=== PATIENT | male | born 1935 | race Caucasian/White ===

== ENCOUNTER 2018-01-24 10:33 | Inpatient (IN) | payer MEDICARE, OTHER ==
[~2018-01-24] VITALS: Ht 172.7 cm; Wt 96.2 kg
[~2018-01-24 10:33] MED LIST: ACET-2743 PO; AEC81 PO; ALLO300T2 PO; ALPH50CA PO; CALCIUM/MAG/ZINC PO; CLON0.1T PO; DOXA4TAB3 PO; GABA-531 PO; GARL1CAP7 PO; GLIP5TAB11 PO; HYDR25TA PO; INSU100I13 SQ; LISI40TA4 PO; MAGN400C PO; SAW450CA7 PO; VITA100T3 PO
[2018-01-24] MEDS ORDERED: IPRATROPIUM/ALBUTEROL SULFATE 3 ML SOLUTION IH ONE (11:23)
[2018-01-24 11:26] LABS: APPEARANCE,URINE Clear (CLEAR); BILIRUBIN,URINE Negative (NEGATIVE); COLOR,URINE Yellow (YELLOW); GLUCOSE, URINE (UA) Negative (NEGATIVE); KETONES,URINE Negative (NEGATIVE); LEUKOCYTE ESTERASE ,URINE Negative (NEGATIVE); NITRATE,URINE Negative (NEGATIVE); OCCULT BLOOD,URINE Negative (NEGATIVE); PROTEIN,URINE POS 1+ (NEGATIVE); UROBILINOGEN,URINE 0.2 mg/dL (0.2-1.0)
[2018-01-24 11:55] LABS: BASOPHILS % (AUTO) 0.5 % (0.0-5.0); EOSINOPHILS % (AUTO) 1.2 % (0.0-8.0); HEMATOCRIT 28.6 % (42-54); LYMPHOCYTES % (AUTO) 14.8 % (21.0-51.0); MEAN CORPUSCULAR HEMOGLOBIN 29.7 pg (27.0-33.0); MEAN CORPUSCULAR HGB CONC 33.7 g/dL (32.0-36.0); MEAN CORPUSCULAR VOLUME 88.2 fL (79-99); MONOCYTES % (AUTO) 9.7 % (3.0-13.0); NEUTROPHILS % (AUTO) 73.8 % (40.0-77.0); PLATELET COUNT (AUTO) 195 K/uL (130-400); RED BLOOD CELL COUNT(AUTO) 3.25 MIL/uL (4.50-6.20); RED CELL DISTRIBUTION WIDTH 15.9 % (11.0-15.5); WHITE BLOOD COUNT (AUTO) 9.1 K/uL (4.8-10.8)
[2018-01-24 12:06] LABS: BACTERIA,URINE None Seen /HPF (None Seen); RBC,URINE None Seen /HPF (0-1); SQUAMOUS EPITHELIAL CELL,UR Rare /HPF (0-2); WBC,URINE None Seen /HPF (0-1)
[2018-01-24 12:07] LABS: CREATININE 1.8 mg/dL (0.5-1.5); POTASSIUM 5.3 mmol/L (3.5-5.1)
[2018-01-24] MEDS ORDERED: METHYLPREDNISOLONE SOD SUCC 125MG/2ML VIAL ONE (12:08)
[2018-01-24] MEDS ORDERED: CEFTRIAXONE SODIUM 1 GM ONE (12:09)
[2018-01-24] MEDS ORDERED: LEVOFLOXACIN 750 MG/D5W 150 ML 150 ML ONE (12:09)
[2018-01-24] MEDS ORDERED: FUROSEMIDE 10 MG/ML 2ML VIAL ONE ×2 (12:09→12:30)
[2018-01-24] MEDS ORDERED: SODIUM CHLORIDE 0.9% 50 ML IV ONE (12:10)
[2018-01-24 12:14] LABS: ALBUMIN 3.4 g/dL (3.5-5.0); BILIRUBIN,TOTAL 0.5 mg/dL (0.2-1.0)
[2018-01-24 12:22] LABS: B-TYPE NATRIURETIC PEPTIDE 1090 pg/mL (0-100)
[2018-01-24] MEDS ORDERED: METHYLPREDNISOLONE SOD SUCC 40MG/ML 1ML IVP SCH (15:15)
[2018-01-24] MEDS ORDERED: ACETAMINOPHEN 325 MG TAB PO PRN (16:00)
[2018-01-24] MEDS ORDERED: MORPHINE SULFATE 2 MG/ML 1ML SYG IV PRN (16:00)
[2018-01-24] MEDS ORDERED: ASPIRIN 81 MG EC TAB PO PRN (16:00)
[2018-01-24] MEDS ORDERED: ONDANSETRON HCL 4 MG/2 ML VIAL IV PRN (16:00)
[2018-01-24] MEDS ORDERED: HYDRALAZINE HCL 20 MG/ML VIAL IV PRN (16:00)
[2018-01-24 17:07] LABS: CREATINE KINASE, TOTAL 83 U/L (21-232); MYOGLOBIN 86 ng/mL (10-92); TROPONIN I < 0.04 ng/mL (0.00-0.06)
[2018-01-24 18:20] LABS: ABG BASE EXCESS -3.2 mmol/L (-2.0-3.0); ABG HCO3 20.6 mmol/L (21.0-28.0); ABG OXYGEN SATURATION 96.6 % (95.0-99.0); ABG PCO2 34 mmHg (35-48)
[2018-01-24] MEDS: IPRATROPIUM/ALBUTEROL SULFATE 3 ML SOLUTION IH SCH ×2 (18:22→23:11)
[2018-01-24 20:04] VITALS: BP 171/75
[2018-01-24] MEDS ORDERED: CLONIDINE HCL 0.1 MG TABLET PO SCH (21:00)
[2018-01-24] MEDS: GABAPENTIN 300 MG CAPSULE PO SCH (21:44)
[2018-01-24] MEDS: FAMOTIDINE/PF 20 MG/2 ML VIAL IV SCH (21:45)
[2018-01-24] MEDS ORDERED: FUROSEMIDE 10 MG/ML 2ML VIAL IVP ONE (22:00)
[2018-01-25 00:07] VITALS: BP 156/68
[2018-01-25 00:39] LABS: CREATINE KINASE, TOTAL 71 U/L (21-232); MYOGLOBIN 85 ng/mL (10-92); TROPONIN I < 0.04 ng/mL (0.00-0.06)
[2018-01-25 04:00] VITALS: BP 132/68
[2018-01-25 04:46] LABS: HEMATOCRIT 27.9 % (42-54); MEAN CORPUSCULAR VOLUME 88.3 fL (79-99); PLATELET COUNT (AUTO) 189 K/uL (130-400); RED BLOOD CELL COUNT(AUTO) 3.15 MIL/uL (4.50-6.20); RED CELL DISTRIBUTION WIDTH 16.2 % (11.0-15.5); WHITE BLOOD COUNT (AUTO) 5.7 K/uL (4.8-10.8)
[2018-01-25 05:01] LABS: CREATININE 1.6 mg/dL (0.5-1.5); POTASSIUM 4.6 mmol/L (3.5-5.1)
[2018-01-25] MEDS: FUROSEMIDE 10 MG/ML 2ML VIAL IV SCH ×2 (05:02→16:43)
[2018-01-25] MEDS: IPRATROPIUM/ALBUTEROL SULFATE 3 ML SOLUTION IH SCH ×2 (05:54→11:27)
[2018-01-25 07:41] VITALS: BP 119/66
[2018-01-25] MEDS: METOPROLOL TARTRATE 25 MG TAB PO SCH ×2 (08:09→13:15)
[2018-01-25] MEDS: GABAPENTIN 300 MG CAPSULE PO SCH ×2 (08:10→13:15)
[2018-01-25] MEDS: FAMOTIDINE/PF 20 MG/2 ML VIAL IV SCH (08:10)
[2018-01-25] MEDS ORDERED: ENOXAPARIN SODIUM 30 MG/0.3 ML SQ SCH (09:00)
[2018-01-25] MEDS ORDERED: DOXAZOSIN MESYLATE 2 MG TABLET PO SCH (09:00)
[2018-01-25] MEDS ORDERED: CALCIUM PO SCH (09:00)
[2018-01-25] MEDS ORDERED: MAGNESIUM OXIDE 400 MG TABLET PO SCH (09:00)
[2018-01-25] MEDS ORDERED: MAG PO SCH (09:00)
[2018-01-25] MEDS ORDERED: ZINC PO SCH (09:00)
[2018-01-25] MEDS ORDERED: ALLOPURINOL 300 MG TABLET PO SCH (09:00)
[2018-01-25 11:22] VITALS: BP 118/54
[2018-01-25] MEDS ORDERED: METF-446 PO (13:14)
[2018-01-25] MEDS ORDERED: ATOR10TA69 PO (13:14)
[2018-01-25] MEDS ORDERED: LOSA25TA16 PO (13:14)
[2018-01-25] MEDS ORDERED: AMLO10TA6 PO (13:14)
[2018-01-25] MEDS ORDERED: MAGNESIUM 2GM PREMIX 50ML 50 ML IV SCH (15:00)
[2018-01-25 16:10] VITALS: BP 142/69
[2018-01-25] MEDS ORDERED: LEVO500T2 PO (17:39)
[2018-01-25] MEDS ORDERED: IPRA3AMP24 IH (17:39)
[2018-01-25] MEDS ORDERED: IPRATROPIUM 0.5 MG/2.5 ML INH IH SCH (18:00)
[2018-01-26] MEDS ORDERED: LEVOFLOXACIN 500 MG/D5W 100 ML 100 ML IV SCH (08:00)
== END 2018-01-25 18:21 | disposition home or self-care (01) | DRG 682 ==
LOC: EDH 10:33 → EDHIP 10:34 → UNDOADMIN 14:25 → 2DH 19:01
PROVIDERS: ADMIT Hospitalist; ATTEND Hospitalist
DX: N17.9 Acute kidney failure, unspecified (principal); J96.01 Acute respiratory failure with hypoxia; J44.0 Chronic obstructive pulmonary disease with (acute) lower respiratory infection; I47.2 Ventricular tachycardia; I47.1 Supraventricular tachycardia; J44.1 Chronic obstructive pulmonary disease with (acute) exacerbation; I11.0 Hypertensive heart disease with heart failure; J20.9 Acute bronchitis, unspecified; E11.65 Type 2 diabetes mellitus with hyperglycemia; E11.51 Type 2 diabetes mellitus with diabetic peripheral angiopathy without gangrene; E11.40 Type 2 diabetes mellitus with diabetic neuropathy, unspecified; D64.9 Anemia, unspecified; E83.42 Hypomagnesemia; E78.00 Pure hypercholesterolemia, unspecified; I50.9 Heart failure, unspecified; M10.9 Gout, unspecified; Z82.49 Family history of ischemic heart disease and other diseases of the circulatory system; Z82.0 Family history of epilepsy and other diseases of the nervous system; Z82.5 Family history of asthma and other chronic lower respiratory diseases; Z83.3 Family history of diabetes mellitus; Z82.3 Family history of stroke; Z79.4 Long term (current) use of insulin; Z85.46 Personal history of malignant neoplasm of prostate; Z87.891 Personal history of nicotine dependence; Z88.8 Allergy status to other drugs, medicaments and biological substances
CPT/HCPCS: 36415; 36600; 71045; 76770; 80048; 80053; 81001; 82550; 82803; 83605; 83735; 83874; 83880; 84484; 85025; 85027; 87633; 87804; 93005; 93306; 93970; 94640; 94664; A4218; J0696; J1650; J1940; J1956; J2930; J3475; J3490

== ENCOUNTER 2018-04-05 11:17 | Inpatient (IN) | payer OTHER | END 2018-04-07 12:00 | disposition home or self-care (01) | LOC: EDH 11:17 → EDHIP 14:07 → 3CH 17:23 | DX: E87.70 Fluid overload, unspecified (principal); N17.9 Acute kidney failure, unspecified; N18.9 Chronic kidney disease, unspecified; E11.21 Type 2 diabetes mellitus with diabetic nephropathy ==

== ENCOUNTER 2018-08-13 09:53 | Observation (INO) | payer OTHER ==
[~2018-08-13] VITALS: Ht 167.6 cm; Wt 97.3 kg
[~2018-08-13 09:53] MED LIST changes: -ACET-2743 PO; -AEC81 PO; -ALLO300T2 PO; -ALPH50CA PO; +ASPI-1197 PO; +ATOR10TA69 PO; -CALCIUM/MAG/ZINC PO; +CEFD300C3 PO; +CHOL40002 PO; -CLON0.1T PO; +DOCU100C33 PO; -DOXA4TAB3 PO; -GABA-531 PO; +GABA-583 PO; +GARL1000 PO; -GARL1CAP7 PO; +GLIP10TA9 PO; -GLIP5TAB11 PO; +HYDR100T27 PO; -HYDR25TA PO; -INSU100I13 SQ; +INSU100I21 SQ; -LISI40TA4 PO; -MAGN400C PO; +METF-445 PO; -SAW450CA7 PO; +TORS20TA4 PO; -VITA100T3 PO; +VITA1CAP85 PO; +VITA400C19 PO
[2018-08-13 10:35] LABS: BASOPHILS % (AUTO) 0.3 % (0.0-5.0); EOSINOPHILS % (AUTO) 0.3 % (0.0-8.0); HEMATOCRIT 28.5 % (42-54); LYMPHOCYTES % (AUTO) 4.4 % (21.0-51.0); MEAN CORPUSCULAR HEMOGLOBIN 29.6 pg (27.0-33.0); MEAN CORPUSCULAR HGB CONC 33.5 g/dL (32.0-36.0); MEAN CORPUSCULAR VOLUME 88.1 fL (79-99); MONOCYTES % (AUTO) 5.6 % (3.0-13.0); NEUTROPHILS % (AUTO) 89.4 % (40.0-77.0); PLATELET COUNT (AUTO) 233 K/uL (130-400); RED BLOOD CELL COUNT(AUTO) 3.23 MIL/uL (4.50-6.20); RED CELL DISTRIBUTION WIDTH 16.1 % (11.0-15.5); WHITE BLOOD COUNT (AUTO) 7.7 K/uL (4.8-10.8)
[2018-08-13 10:42] LABS: CREATININE 1.4 mg/dL (0.5-1.5); POTASSIUM 4.3 mmol/L (3.5-5.1)
[2018-08-13 10:46] LABS: BILIRUBIN,TOTAL 0.4 mg/dL (0.2-1.0); TOTAL PROTEIN, SERUM 6.7 g/dL (6.0-8.3)
[2018-08-13 11:39] LABS: APPEARANCE,URINE SL CLOUDY (CLEAR); BILIRUBIN,URINE NEGATIVE (NEGATIVE); COLOR,URINE YELLOW (YELLOW); GLUCOSE, URINE (UA) NEGATIVE (NEGATIVE); KETONES,URINE NEGATIVE (NEGATIVE); LEUKOCYTE ESTERASE ,URINE MODERATE (NEGATIVE); NITRATE,URINE POSITIVE (NEGATIVE); OCCULT BLOOD,URINE SMALL (NEGATIVE); PROTEIN,URINE 100 mg/dL (NEGATIVE)
[2018-08-13 12:01] LABS: BACTERIA,URINE Many /HPF (None Seen); SQUAMOUS EPITHELIAL CELL,UR 0-2 /HPF (0-2); WBC,URINE 51-100 /HPF (0-1)
[2018-08-13] MEDS ORDERED: ONDANSETRON HCL 4 MG/2 ML VIAL ONE (12:01)
[2018-08-13] MEDS ORDERED: ACETAMINOPHEN 325 MG TAB PO PRN (14:15)
[2018-08-13] MEDS ORDERED: ONDANSETRON HCL 4 MG/2 ML VIAL IV PRN (14:15)
[2018-08-13] MEDS ORDERED: MORPHINE SULFATE 2 MG/ML 1ML SYG IV PRN (14:15)
[2018-08-13] MEDS ORDERED: ZOSYN 3.375GM+NS 50ML 50 ML IV ONE (14:36)
[2018-08-13] MEDS ORDERED: CEFTRIAXONE SODIUM 1 GM ONE (17:27)
[2018-08-13] MEDS ORDERED: SODIUM CHLORIDE 0.9% 100 ML IV ONE (17:28)
[2018-08-13] MEDS ORDERED: MORPHINE SULFATE 2 MG/ML 1ML SYG ONE (20:28)
[2018-08-13] MEDS ORDERED: ACETAMINOPHEN EXTRA STRENGTH 500 MG TABLET ONE (22:16)
[2018-08-14 07:13] LABS: BASOPHILS % (AUTO) 0.4 % (0.0-5.0); EOSINOPHILS % (AUTO) 3.2 % (0.0-8.0); HEMATOCRIT 29.2 % (42-54); LYMPHOCYTES % (AUTO) 11.4 % (21.0-51.0); MEAN CORPUSCULAR HEMOGLOBIN 30.2 pg (27.0-33.0); MEAN CORPUSCULAR HGB CONC 34.5 g/dL (32.0-36.0); MEAN CORPUSCULAR VOLUME 87.4 fL (79-99); MONOCYTES % (AUTO) 10.6 % (3.0-13.0); NEUTROPHILS % (AUTO) 74.4 % (40.0-77.0); PLATELET COUNT (AUTO) 216 K/uL (130-400); RED BLOOD CELL COUNT(AUTO) 3.34 MIL/uL (4.50-6.20); RED CELL DISTRIBUTION WIDTH 16.3 % (11.0-15.5); WHITE BLOOD COUNT (AUTO) 5.9 K/uL (4.8-10.8)
[2018-08-14 07:38] LABS: CREATININE 1.2 mg/dL (0.5-1.5); POTASSIUM 3.8 mmol/L (3.5-5.1)
[2018-08-14 08:25] VITALS: BP 163/80
[2018-08-14] MEDS ORDERED: HYDR100T27 PO (09:55)
[2018-08-14] MEDS ORDERED: CLON1PAT12 TD (09:55)
[2018-08-14] MEDS ORDERED: GABA-583 PO (09:55)
[2018-08-14] MEDS ORDERED: ALLO300T2 PO (10:06)
[2018-08-14 12:00] VITALS: BP 202/84
[2018-08-14] MEDS ORDERED: CLONIDINE 0.1 MG/ 24 HR PATCH TD PRN (12:15)
[2018-08-14] MEDS ORDERED: DEXTROSE 50%-WATER 50 ML DISP.SYRIN IV PRN (12:15)
[2018-08-14] MEDS ORDERED: GLUCAGON 1MG KIT 1 MG ML IM PRN (12:15)
[2018-08-14] MEDS: INSULIN HUMULIN R 100 UNIT/ML 3ML SQ SCH ×3 (12:25→21:00)
[2018-08-14] MEDS ORDERED: INSULIN HUMULIN R 100 UNIT/ML 3ML ONE (12:25)
[2018-08-14] MEDS: FAMOTIDINE 20MG TAB 20 MG TAB PO SCH ×2 (12:27→12:30)
[2018-08-14] MEDS: ENOXAPARIN SODIUM 30 MG/0.3 ML SQ SCH (12:27)
[2018-08-14] MEDS: HYDRALAZINE HCL 20 MG/ML VIAL IV PRN (12:41)
[2018-08-14] MEDS: HYDRALAZINE HCL 25 MG TABLET PO SCH ×2 (14:29→21:53)
[2018-08-14] MEDS: GABAPENTIN 300 MG CAPSULE PO SCH ×2 (14:29→21:53)
[2018-08-14] MEDS: CEFTRIAXONE SODIUM 1 GM IV SCH ×2 (14:29→14:57)
[2018-08-14 16:00] VITALS: BP 179/80
[2018-08-14 19:00] VITALS: BP 148/77
[2018-08-14] MEDS ORDERED: ATORVASTATIN CALCIUM 10 MG TABLET PO SCH (21:00)
[2018-08-14] MEDS: DOCUSATE SODIUM 100 MG CAP PO SCH (21:53)
[2018-08-15] VITALS: BP 146/61
[2018-08-15 04:00] VITALS: BP 148/73
[2018-08-15] MEDS: INSULIN HUMULIN R 100 UNIT/ML 3ML SQ SCH ×2 (06:26→11:41)
[2018-08-15 08:00] VITALS: BP 200/88
[2018-08-15] MEDS: HYDRALAZINE HCL 20 MG/ML VIAL IV PRN (08:03)
[2018-08-15] MEDS ORDERED: ASPIRIN 81MG TAB.CHEW PO SCH (09:00)
[2018-08-15] MEDS ORDERED: GARLIC 1000 MG PO SCH (09:00)
[2018-08-15] MEDS ORDERED: VIT D3 4000 UNIT PO SCH (09:00)
[2018-08-15] MEDS ORDERED: TORSEMIDE 20 MG TAB PO SCH (09:00)
[2018-08-15] MEDS ORDERED: VITAMIN E 400 UNIT CAPSULE PO SCH (09:00)
[2018-08-15] MEDS ORDERED: VITAMIN B COMPLEX 1 CAPSULE PO SCH (09:00)
[2018-08-15] MEDS ORDERED: ALLOPURINOL 300 MG TABLET PO SCH (09:00)
[2018-08-15] MEDS: DOCUSATE SODIUM 100 MG CAP PO SCH (09:03)
[2018-08-15] MEDS: GABAPENTIN 300 MG CAPSULE PO SCH (09:03)
[2018-08-15] MEDS: HYDRALAZINE HCL 25 MG TABLET PO SCH (09:04)
[2018-08-15] MEDS: FAMOTIDINE 20MG TAB 20 MG TAB PO SCH (09:04)
[2018-08-15] MEDS: ENOXAPARIN SODIUM 30 MG/0.3 ML SQ SCH (09:05)
[2018-08-15 09:14] VITALS: BP 125/97
[2018-08-15 09:26] LABS: HEMATOCRIT 33.1 % (42-54); MEAN CORPUSCULAR HEMOGLOBIN 29.1 pg (27.0-33.0); MEAN CORPUSCULAR HGB CONC 33.3 g/dL (32.0-36.0); MEAN CORPUSCULAR VOLUME 87.5 fL (79-99); PLATELET COUNT (AUTO) 313 K/uL (130-400); RED BLOOD CELL COUNT(AUTO) 3.78 MIL/uL (4.50-6.20); RED CELL DISTRIBUTION WIDTH 16.3 % (11.0-15.5); WHITE BLOOD COUNT (AUTO) 8.5 K/uL (4.8-10.8)
[2018-08-15 09:44] LABS: ALBUMIN 3.3 g/dL (3.5-5.0); BILIRUBIN,TOTAL 0.4 mg/dL (0.2-1.0); CREATININE 1.4 mg/dL (0.5-1.5); POTASSIUM 3.9 mmol/L (3.5-5.1); TOTAL PROTEIN, SERUM 7.3 g/dL (6.0-8.3)
[2018-08-15 09:45] LABS: EOSINOPHILS % (MANUAL) 3 % (1-6); LYMPHOCYTES % (MANUAL) 22 % (22-44); MAN.DIFF COMMENT-IMPRESSION MANUAL DIFFERENTIAL; MONOCYTES % (MANUAL) 12 % (2-9); PLATELET MORPHOLOGY COMMENT ADEQUATE; REACTIVE LYMPHOCYTES 1 % (0-0); SEGMENTED NEUTROPHILS % 62 % (40-70)
[2018-08-15] MEDS ORDERED: CLON0.1T PO (10:58)
--- NOTE | 2018-08-15 11:00 | NUR ---
CM NOTE P DCD IN OBS STATUS; NO CONCERNS VOICED TO PRIMARY RN; NO TRIGGERS TO CM, DETAILED ASSESSMENT DEFERRED AT THIS TIME Addendum: 08/15/18 at 1542 by CHASIDY CROWLEY RN CM Amended: Links added.
[2018-08-15 12:00] VITALS: BP 154/63
[2018-08-15] MEDS ORDERED: CLONIDINE HCL 0.1 MG TABLET PO SCH (12:00)
[2018-08-15] MEDS ORDERED: CEFD300C3 PO (12:08)
== END 2018-08-15 13:43 | disposition home or self-care (01) ==
LOC: EDH 09:53 → EDHIP 14:14 → 4CH 08-14 08:21
PROVIDERS: ADMIT Family Medicine; ATTEND Family Medicine
DX: N30.00 Acute cystitis without hematuria (principal); R11.2 Nausea with vomiting, unspecified; I25.10 Atherosclerotic heart disease of native coronary artery without angina pectoris; T83.511A Infection and inflammatory reaction due to indwelling urethral catheter, initial encounter; E11.22 Type 2 diabetes mellitus with diabetic chronic kidney disease; I13.0 Hypertensive heart and chronic kidney disease with heart failure and stage 1 through stage 4 chronic kidney disease, or unspecified chronic kidney disease; I50.9 Heart failure, unspecified; E11.65 Type 2 diabetes mellitus with hyperglycemia; E66.9 Obesity, unspecified; E78.5 Hyperlipidemia, unspecified; E87.5 Hyperkalemia; N17.9 Acute kidney failure, unspecified; N18.9 Chronic kidney disease, unspecified; Z79.4 Long term (current) use of insulin; Y84.6 Urinary catheterization as the cause of abnormal reaction of the patient, or of later complication, without mention of misadventure at the time of the procedure
CPT/HCPCS: 36415 ×3; 70450; 71045; 80048; 80053 ×2; 81001; 82948 ×5; 83880; 85025 ×3; 93005; 96372 ×2; 96374; 96375; 96376; 97039; 97116 ×2; 97161; 99284; G0378 ×47; G8978; G8979; G8980; G8981; G8982; G8983; J0360 ×2; J0696 ×2; J1650 ×2; J1815 ×3; J2405; J2543

== ENCOUNTER 2018-08-26 23:45 | Emergency (ER) | payer OTHER ==
[~2018-08-26 23:45] MED LIST changes: +ALLO300T2 PO; +CLON0.1T PO; +CLON1PAT12 TD
[2018-08-27 00:50] LABS: BASOPHILS % (AUTO) 0.9 % (0.0-5.0); EOSINOPHILS % (AUTO) 2.4 % (0.0-8.0); LYMPHOCYTES % (AUTO) 13.1 % (21.0-51.0); MEAN CORPUSCULAR HEMOGLOBIN 29.3 pg (27.0-33.0); MEAN CORPUSCULAR HGB CONC 33.4 g/dL (32.0-36.0); MEAN CORPUSCULAR VOLUME 87.7 fL (79-99); MONOCYTES % (AUTO) 8.1 % (3.0-13.0); NEUTROPHILS % (AUTO) 75.5 % (40.0-77.0); PLATELET COUNT (AUTO) 230 K/uL (130-400); RED BLOOD CELL COUNT(AUTO) 3.19 MIL/uL (4.50-6.20); RED CELL DISTRIBUTION WIDTH 16.4 % (11.0-15.5); WHITE BLOOD COUNT (AUTO) 9.6 K/uL (4.8-10.8)
[2018-08-27 00:59] LABS: CREATININE 1.5 mg/dL (0.5-1.5); POTASSIUM 4.6 mmol/L (3.5-5.1)
[2018-08-27 01:01] LABS: ALBUMIN 3.2 g/dL (3.5-5.0); BILIRUBIN,DIRECT 0.1 mg/dL (0.0-0.3); BILIRUBIN,TOTAL 0.2 mg/dL (0.2-1.0); INR 1.02 (0.85-1.15); PARTIAL THROMBOPLASTIN TIME 30.1 SEC (26.3-35.5); PROTHROMBIN TIME 10.7 SEC (9.6-11.6); TOTAL PROTEIN, SERUM 6.4 g/dL (6.0-8.3)
[2018-08-27 01:25] LABS: BILIRUBIN,URINE MODERATE (NEGATIVE); COLOR,URINE YELLOW (YELLOW); GLUCOSE, URINE (UA) >=1000 mg/dL (NEGATIVE); KETONES,URINE 5 mg/dL (NEGATIVE); LEUKOCYTE ESTERASE ,URINE SMALL (NEGATIVE); NITRATE,URINE POSITIVE (NEGATIVE); OCCULT BLOOD,URINE LARGE (NEGATIVE); PROTEIN,URINE >=300 mg/dL (NEGATIVE)
[2018-08-27 01:27] LABS: APPEARANCE,URINE SLIGHTLY CLOUDY (CLEAR)
[2018-08-27 01:40] LABS: BACTERIA,URINE Many /HPF (None Seen); RBC,URINE >100 /HPF (0-1)
[2018-08-27 01:41] LABS: SQUAMOUS EPITHELIAL CELL,UR 0-2 /HPF (0-2)
[2018-08-27] MEDS ORDERED: LEVOFLOXACIN 500 MG/D5W 100 ML 100 ML ONE (02:50)
== END 2018-08-27 05:05 | disposition home or self-care (01) ==
LOC: EDH 23:45
DX: N30.01 Acute cystitis with hematuria (principal); I11.0 Hypertensive heart disease with heart failure; I50.9 Heart failure, unspecified; E11.9 Type 2 diabetes mellitus without complications; I25.10 Atherosclerotic heart disease of native coronary artery without angina pectoris; Z87.891 Personal history of nicotine dependence; Z88.8 Allergy status to other drugs, medicaments and biological substances
CPT/HCPCS: 36415; 51702; 80048; 80076; 81001; 85025; 85610; 85730; 87077; 87088; 87186; 96365; 96366; 99285; J1956

== ENCOUNTER → 2018-09-12 | Outpatient (CLI) | payer OTHER | END | disposition home or self-care (01) | LOC: RAH 13:10 | PROVIDERS: ATTEND Family Medicine | DX: G31.89 Other specified degenerative diseases of nervous system (principal); R90.82 White matter disease, unspecified; I10 Essential (primary) hypertension; E11.8 Type 2 diabetes mellitus with unspecified complications; G47.33 Obstructive sleep apnea (adult) (pediatric); E11.40 Type 2 diabetes mellitus with diabetic neuropathy, unspecified | CPT/HCPCS: 70551 ==

== ENCOUNTER 2018-10-11 11:18 | Emergency (ER) | payer OTHER ==
[2018-10-11 11:56] LABS: CREATININE 2.3 mg/dL (0.5-1.5); POTASSIUM 4.7 mmol/L (3.5-5.1)
[2018-10-11 11:58] LABS: BASOPHILS % (AUTO) 0.3 % (0.0-5.0); EOSINOPHILS % (AUTO) 2.1 % (0.0-8.0); HEMATOCRIT 29.7 % (42-54); LYMPHOCYTES % (AUTO) 18.1 % (21.0-51.0); MEAN CORPUSCULAR HEMOGLOBIN 29.4 pg (27.0-33.0); MEAN CORPUSCULAR HGB CONC 33.4 g/dL (32.0-36.0); MEAN CORPUSCULAR VOLUME 88.1 fL (79-99); MONOCYTES % (AUTO) 8.5 % (3.0-13.0); PLATELET COUNT (AUTO) 226 K/uL (130-400); RED BLOOD CELL COUNT(AUTO) 3.37 MIL/uL (4.50-6.20); RED CELL DISTRIBUTION WIDTH 16.4 % (11.0-15.5); WHITE BLOOD COUNT (AUTO) 9.9 K/uL (4.8-10.8)
[2018-10-11 12:01] LABS: ALBUMIN 3.3 g/dL (3.5-5.0); BILIRUBIN,TOTAL 0.2 mg/dL (0.2-1.0)
[2018-10-11 12:08] LABS: MAGNESIUM 1.6 mg/dL (1.80-2.40); PHOSPHORUS 3.8 mg/dL (2.5-4.9)
[2018-10-11 12:47] LABS: APPEARANCE,URINE TURBID (CLEAR); BILIRUBIN,URINE NEGATIVE (NEGATIVE); COLOR,URINE YELLOW (YELLOW); GLUCOSE, URINE (UA) NEGATIVE (NEGATIVE); KETONES,URINE 5 mg/dL (NEGATIVE); LEUKOCYTE ESTERASE ,URINE MODERATE (NEGATIVE); NITRATE,URINE NEGATIVE (NEGATIVE); OCCULT BLOOD,URINE NEGATIVE (NEGATIVE); PROTEIN,URINE 100 mg/dL (NEGATIVE); UROBILINOGEN,URINE 0.2 mg/dL (0.2-1.0)
[2018-10-11 12:57] LABS: BACTERIA,URINE Many /HPF (None Seen); SQUAMOUS EPITHELIAL CELL,UR Rare /HPF (0-2); WBC,URINE TNTC /HPF (0-1)
[2018-10-11] MEDS ORDERED: CEFTRIAXONE SODIUM 1 GM ONE (13:21)
[2018-10-11] MEDS ORDERED: SODIUM CHLORIDE 0.9% 100 ML IV ONE (13:21)
== END 2018-10-11 13:55 | disposition home or self-care (01) ==
LOC: EDH 11:18
DX: N39.0 Urinary tract infection, site not specified (principal); R06.02 Shortness of breath; I25.10 Atherosclerotic heart disease of native coronary artery without angina pectoris; E11.9 Type 2 diabetes mellitus without complications; I11.0 Hypertensive heart disease with heart failure; I50.9 Heart failure, unspecified; Z88.1 Allergy status to other antibiotic agents; Z90.49 Acquired absence of other specified parts of digestive tract; Z91.040 Latex allergy status; Z87.891 Personal history of nicotine dependence
CPT/HCPCS: 36415; 80053; 81001; 83735; 84100; 85025; 87077; 87088; 87186; 96374; 99284; J0696

== ENCOUNTER 2018-10-14 17:36 | Observation (INO) | payer OTHER ==
[~2018-10-14] VITALS: Ht 172.7 cm; Wt 101.1 kg
[2018-10-14 18:47] LABS: BASOPHILS % (AUTO) 0.4 % (0.0-5.0); EOSINOPHILS % (AUTO) 4.5 % (0.0-8.0); HEMATOCRIT 28.6 % (42-54); LYMPHOCYTES % (AUTO) 18.1 % (21.0-51.0); MEAN CORPUSCULAR HEMOGLOBIN 29.5 pg (27.0-33.0); MEAN CORPUSCULAR HGB CONC 33.5 g/dL (32.0-36.0); MEAN CORPUSCULAR VOLUME 88.2 fL (79-99); MONOCYTES % (AUTO) 9.3 % (3.0-13.0); NEUTROPHILS % (AUTO) 67.7 % (40.0-77.0); PLATELET COUNT (AUTO) 217 K/uL (130-400); RED BLOOD CELL COUNT(AUTO) 3.24 MIL/uL (4.50-6.20); RED CELL DISTRIBUTION WIDTH 16.7 % (11.0-15.5); WHITE BLOOD COUNT (AUTO) 6.2 K/uL (4.8-10.8)
[2018-10-14 18:56] LABS: CREATININE 1.9 mg/dL (0.5-1.5); POTASSIUM 4.2 mmol/L (3.5-5.1)
[2018-10-14 18:59] LABS: INR 1.04 (0.85-1.15); PARTIAL THROMBOPLASTIN TIME 31.6 SEC (26.3-35.5); PROTHROMBIN TIME 10.9 SEC (9.6-11.6)
[2018-10-14 19:03] LABS: ALBUMIN 3.1 g/dL (3.5-5.0); BILIRUBIN,DIRECT 0.1 mg/dL (0.0-0.3); BILIRUBIN,TOTAL 0.2 mg/dL (0.2-1.0); TOTAL PROTEIN, SERUM 6.7 g/dL (6.0-8.3)
[2018-10-14 19:10] LABS: APPEARANCE,URINE Turbid (CLEAR); BILIRUBIN,URINE Negative (NEGATIVE); COLOR,URINE Yellow (YELLOW); GLUCOSE, URINE (UA) >=1000 mg/dL (NEGATIVE); KETONES,URINE Negative (NEGATIVE); LEUKOCYTE ESTERASE ,URINE Large (NEGATIVE); NITRATE,URINE Positive (NEGATIVE); OCCULT BLOOD,URINE Trace (NEGATIVE); PH,URINE 5.5 (5.0-8.0); PROTEIN,URINE POS 1+ mg/dL (NEGATIVE); UROBILINOGEN,URINE 0.2 mg/dL (0.2-1.0)
[2018-10-14 19:37] LABS: BACTERIA,URINE Few /HPF (None Seen); WBC,URINE >100 /HPF (0-1)
[2018-10-14 19:38] LABS: SQUAMOUS EPITHELIAL CELL,UR Rare /HPF (0-2)
[2018-10-14] MEDS ORDERED: ZOSYN 3.375GM+NS 50ML 50 ML IV ONE (19:57)
[2018-10-14] MEDS ORDERED: SODIUM CHLORIDE 0.9% 1000ML 1,000 ML IV SCH (20:17)
[2018-10-14] MEDS ORDERED: ONDANSETRON HCL 4 MG/2 ML VIAL IV PRN (20:30)
[2018-10-14] MEDS ORDERED: ACETAMINOPHEN 325 MG TAB PO PRN ×2 (20:30)
[2018-10-14] MEDS ORDERED: ENOXAPARIN SODIUM 30 MG/0.3 ML SQ SCH (21:00)
[2018-10-14] MEDS ORDERED: FAMOTIDINE/PF 20 MG/2 ML VIAL IV SCH (21:00)
[2018-10-14] MEDS ORDERED: INSULIN HUMULIN R 100 UNIT/ML 3ML ONE (21:22)
[2018-10-14 22:07] VITALS: BP 199/83
[2018-10-14] MEDS: FAMOTIDINE/PF 20 MG/2 ML VIAL IV SCH (22:16)
[2018-10-14] MEDS ORDERED: VITA40TA PO (22:48)
[2018-10-14] MEDS ORDERED: METF-445 PO (22:48)
--- NOTE | 2018-10-14 23:03 | NUR ---
NOTE CONTACTED HOSPITALIST SPOKE WITH ZAIN URENA TO INFORM OF BP 202/82. ORDERS RECEIVED FOR HYDRALAZINE AND TO CONTINUE HOME MEDICATIONS.
[2018-10-14] MEDS ORDERED: HYDRALAZINE HCL 20 MG/ML VIAL ONE (23:04)
[2018-10-14] MEDS ORDERED: CLON.1 PO (23:09)
[2018-10-14] MEDS ORDERED: HYDRALAZINE HCL 20 MG/ML VIAL IV PRN (23:15)
[2018-10-14] MEDS ORDERED: CLONIDINE HCL 0.1 MG TABLET PO PRN ×2 (23:15→23:45)
[2018-10-14] MEDS ORDERED: DOCUSATE SODIUM 100 MG CAP PO PRN (23:15)
[2018-10-14 23:39] VITALS: BP 174/66
[2018-10-14] MEDS ORDERED: GLUCAGON 1MG KIT 1 MG ML IM PRN (23:45)
[2018-10-14] MEDS ORDERED: DEXTROSE 50%-WATER 50 ML DISP.SYRIN IV PRN (23:45)
[2018-10-15] MEDS ORDERED: HYDRALAZINE HCL 25 MG TABLET ONE ×2 (04:05→04:07)
[2018-10-15 04:11] VITALS: BP 184/78
[2018-10-15] MEDS: HYDRALAZINE HCL 25 MG TABLET PO SCH ×3 (06:00→20:42)
[2018-10-15] MEDS: INSULIN R PO SS1 SQ SCH ×4 (06:01→20:43)
[2018-10-15 08:00] VITALS: BP 173/70
[2018-10-15] MEDS ORDERED: CLONIDINE HCL 0.1 MG TABLET PO SCH (09:00)
[2018-10-15] MEDS ORDERED: TORSEMIDE 20 MG TAB PO SCH (09:00)
[2018-10-15] MEDS: GARLIC 1000 MG PO SCH (09:00)
[2018-10-15] MEDS: CHOLECALCIFEROL 4000 UNIT PO SCH (09:00)
[2018-10-15] MEDS: ASPIRIN 81MG TAB.CHEW PO SCH (09:10)
[2018-10-15] MEDS: VITAMIN B COMPLEX 1 CAPSULE PO SCH (09:10)
[2018-10-15] MEDS: METFORMIN HCL 850 MG TABLET PO SCH ×2 (09:10→16:33)
[2018-10-15] MEDS: GABAPENTIN 300 MG CAPSULE PO SCH ×2 (09:12→20:42)
[2018-10-15] MEDS: ALLOPURINOL 100 MG TABLET PO SCH (09:12)
[2018-10-15] MEDS: GLIPIZIDE 5 MG TABLET PO SCH ×2 (09:12→16:34)
[2018-10-15] MEDS: VITAMIN E 400 UNIT CAPSULE PO SCH (09:12)
[2018-10-15] MEDS: ENOXAPARIN SODIUM 30 MG/0.3 ML SQ SCH (09:13)
[2018-10-15] MEDS: ZOSYN 3.375GM+NS 50ML 50 ML IV SCH ×2 (09:14→20:43)
[2018-10-15] MEDS: SODIUM CHLORIDE 0.9% 1000ML 1,000 ML IV SCH ×2 (09:30→18:50)
[2018-10-15 12:00] VITALS: BP 137/69
[2018-10-15] MEDS ORDERED: CYAN10007 IJ (14:53)
[2018-10-15 16:00] VITALS: BP 164/65
--- NOTE | 2018-10-15 17:32 | NUR ---
cm note pt resides at home with spouse, spouse assists as needed. uses cane and walker for ambulation. has cpap at home. dc plan is back to same home setting at [place]. no dc needs. Addendum: 10/15/18 at 1733 by GABRIEL KENNEDY CM Amended: Links added.
[2018-10-15 19:32] VITALS: BP 198/98
--- NOTE | 2018-10-15 19:36 | NUR ---
NOTE BP 198/98 HR 82. CONTACTED HOSPITALIST SPOKE WITH Marie URENA, UPDATED ON MEDICATION ORDERS FOR THE DAY AND CLONIDINE PLACED ON HOLD. NOW CURRENTLY ON HYDRALAZINE 100MG PO TID AND HYDRALAZINE PRN. RECEIVED ORDERS TO STOP IVF. HE SAID HE IS ENTERING ORDERS FOR BNP AND FOR METOPROLOL. INFORMED PATIENT OF NEW ORDERS.
[2018-10-15] MEDS: FAMOTIDINE/PF 20 MG/2 ML VIAL IV SCH (20:42)
[2018-10-15] MEDS ORDERED: INSULIN GLARGINE 100 UNITS/ML 10 ML VIAL SQ SCH (21:00)
[2018-10-15] MEDS ORDERED: ATORVASTATIN CALCIUM 10 MG TABLET PO SCH (21:00)
[2018-10-15] MEDS: METOPROLOL TARTRATE 25 MG TAB PO SCH (23:42)
[2018-10-16] VITALS: BP 177/70
[2018-10-16 04:10] VITALS: BP 135/56
[2018-10-16 04:35] LABS: HEMATOCRIT 29.5 % (42-54); MEAN CORPUSCULAR HEMOGLOBIN 29.4 pg (27.0-33.0); MEAN CORPUSCULAR HGB CONC 33.6 g/dL (32.0-36.0); MEAN CORPUSCULAR VOLUME 87.6 fL (79-99); PLATELET COUNT (AUTO) 239 K/uL (130-400); RED BLOOD CELL COUNT(AUTO) 3.37 MIL/uL (4.50-6.20); RED CELL DISTRIBUTION WIDTH 16.4 % (11.0-15.5); WHITE BLOOD COUNT (AUTO) 10.4 K/uL (4.8-10.8)
[2018-10-16 04:53] LABS: ALBUMIN 2.9 g/dL (3.5-5.0); BILIRUBIN,TOTAL 0.2 mg/dL (0.2-1.0); CREATININE 1.4 mg/dL (0.5-1.5); POTASSIUM 3.8 mmol/L (3.5-5.1); TOTAL PROTEIN, SERUM 6.2 g/dL (6.0-8.3)
[2018-10-16] MEDS: INSULIN R PO SS1 SQ SCH ×2 (05:22→11:26)
[2018-10-16] MEDS: HYDRALAZINE HCL 25 MG TABLET PO SCH (06:13)
[2018-10-16] MEDS ORDERED: SULF1TAB42 PO (08:28)
[2018-10-16] MEDS ORDERED: TAMS-1 PO (08:28)
--- NOTE | 2018-10-16 08:30 | NUR ---
DR. Sabra BELTRAN HOSPITALIST HERE TO SEE PATIENT. STATES PATIENT CAN BE DISCHARGED TODAY. RX IN CHART. DR. Sabra BELTRAN ALSO TOLD ME HE SPOKE TO DR. WEN YESTERDAY 10/15/18 AND PATIENT CAN BE DISCHARGED TODAY WITH PO ANTIBIOTIC BACTRIM.
[2018-10-16] MEDS: ZOSYN 3.375GM+NS 50ML 50 ML IV SCH (08:43)
[2018-10-16] MEDS: METFORMIN HCL 850 MG TABLET PO SCH (08:43)
[2018-10-16] MEDS: GLIPIZIDE 5 MG TABLET PO SCH (08:44)
[2018-10-16] MEDS: ASPIRIN 81MG TAB.CHEW PO SCH (08:44)
[2018-10-16] MEDS: VITAMIN E 400 UNIT CAPSULE PO SCH (08:44)
[2018-10-16] MEDS: ALLOPURINOL 100 MG TABLET PO SCH (08:45)
[2018-10-16] MEDS: METOPROLOL TARTRATE 25 MG TAB PO SCH (08:45)
[2018-10-16] MEDS: VITAMIN B COMPLEX 1 CAPSULE PO SCH (08:45)
[2018-10-16] MEDS: GABAPENTIN 300 MG CAPSULE PO SCH (08:45)
[2018-10-16] MEDS: ENOXAPARIN SODIUM 30 MG/0.3 ML SQ SCH (08:46)
[2018-10-16] MEDS: CHOLECALCIFEROL 4000 UNIT PO SCH (08:51)
[2018-10-16] MEDS: GARLIC 1000 MG PO SCH (08:51)
[2018-10-16 08:52] VITALS: BP 189/79
--- NOTE | 2018-10-16 09:00 | NUR ---
DISCHARGE INFORMED PATIENT HOSPITALIST PLACED ORDER FOR DISCHARGE TODAY. PATIENT TOLD ME "MY WILL NOT BE ABLE TO PICK ME UP UNTIL 1230 PM."
[2018-10-16 11:33] VITALS: BP 184/76
--- NOTE | 2018-10-16 12:30 | NUR ---
DISCHARGE DISCHARGE INSTRUCTIONS PROVIDED TO PATIENT AND HIS , SIENNA MARTIN. PROVIDED TEACHING REGARDING RX (BACTRIM, FLOMAX), URINE TRACT INFECTION CARE AT HOME, AND PATIENT NEEDS TO CALL PRIMARY MD'S OFFICE TO SCHEDULE ONE WEEK FOLLOW-UP APPOINTMENT. PATIENTS STATES SHE HAS ALREADY CONTACTED PATIENTS PCP AND IS WAITING TO SCHEDULE APPOINTMENT. REMOVED 20G IV FROM RIGHT FA, CATHETER TIP INTACT. PATIENT IS IN NO APPARENT DISTRESS OR DISCOMFORTS. PATIENT TO BE DRIVEN HOME BY A FAMILY FRIEND.
[2018-10-17] MEDS ORDERED: VITAMIN K2 40 MCG PO SCH (09:00)
[2018-11-14] MEDS ORDERED: CYANOCOBALAMIN (VITAMIN B-12) 1000 MCG/ML 1ML VIAL IM SCH (09:00)
== END 2018-10-16 12:48 | disposition home or self-care (01) ==
LOC: EDH 17:36 → INTOOBSV 19:45 → EDHIP 19:45 → 4BH 21:14
PROVIDERS: ADMIT Internal Medicine; ATTEND Internal Medicine
DX: N39.0 Urinary tract infection, site not specified (principal); I13.0 Hypertensive heart and chronic kidney disease with heart failure and stage 1 through stage 4 chronic kidney disease, or unspecified chronic kidney disease; I50.9 Heart failure, unspecified; N18.9 Chronic kidney disease, unspecified; E11.22 Type 2 diabetes mellitus with diabetic chronic kidney disease; E11.65 Type 2 diabetes mellitus with hyperglycemia; Z79.4 Long term (current) use of insulin; E78.5 Hyperlipidemia, unspecified; Z85.46 Personal history of malignant neoplasm of prostate; E66.9 Obesity, unspecified; Z68.33 Body mass index [BMI] 33.0-33.9, adult; Z88.8 Allergy status to other drugs, medicaments and biological substances; Z79.82 Long term (current) use of aspirin; Z16.24 Resistance to multiple antibiotics; Z91.040 Latex allergy status
CPT/HCPCS: 36415 ×3; 80048; 80053; 80076; 81001; 82948 ×7; 83605; 83880; 85025; 85027; 85610; 85730; 87040 ×2; 87077; 87088; 87186; 96365; 96366 ×2; 96372 ×3; 96375; 99284; G0378 ×41; J0360 ×2; J1650 ×2; J1815 ×4; J2543 ×4; J3490 ×2; J7030 ×2

== ENCOUNTER 2018-11-22 04:37 | Emergency (ER) | payer OTHER ==
[~2018-11-22 04:37] MED LIST changes: -CEFD300C3 PO; -CLON1PAT12 TD; +CYAN10007 IJ; +SULF1TAB42 PO; +TAMS-1 PO; +VITA40TA PO
[2018-11-22] MEDS ORDERED: LABETALOL 20 MG/4 ML DISP.SYRIN IV ONE ×2 (05:30→08:17)
[2018-11-22 05:52] LABS: BASOPHILS % (AUTO) 0.6 % (0.0-5.0); EOSINOPHILS % (AUTO) 2.1 % (0.0-8.0); HEMATOCRIT 30.4 % (42-54); LYMPHOCYTES % (AUTO) 14.9 % (21.0-51.0); MEAN CORPUSCULAR HEMOGLOBIN 29.6 pg (27.0-33.0); MEAN CORPUSCULAR HGB CONC 34.5 g/dL (32.0-36.0); MEAN CORPUSCULAR VOLUME 85.9 fL (79-99); NEUTROPHILS % (AUTO) 74.4 % (40.0-77.0); NUCLEATED RED BLOOD CELLS 0.1 % (0.0-0.19); PLATELET COUNT (AUTO) 246 K/uL (130-400); RED BLOOD CELL COUNT(AUTO) 3.53 MIL/uL (4.50-6.20); RED CELL DISTRIBUTION WIDTH 17.5 % (11.0-15.5); WHITE BLOOD COUNT (AUTO) 8.7 K/uL (4.8-10.8)
[2018-11-22 06:03] LABS: CREATININE 1.6 mg/dL (0.5-1.5); POTASSIUM 4.6 mmol/L (3.5-5.1)
[2018-11-22 06:09] LABS: ALBUMIN 3.5 g/dL (3.5-5.0); BILIRUBIN,DIRECT 0.1 mg/dL (0.0-0.3); BILIRUBIN,TOTAL 0.3 mg/dL (0.2-1.0); TOTAL PROTEIN, SERUM 6.9 g/dL (6.0-8.3)
[2018-11-22 06:35] LABS: B-TYPE NATRIURETIC PEPTIDE 260 pg/mL (0-100)
[2018-11-22] MEDS ORDERED: HYDROCHLOROTHIAZIDE 25 MG TABLET ONE (08:18)
[2018-11-22 09:11] LABS: APPEARANCE,URINE CLEAR (CLEAR); BILIRUBIN,URINE NEGATIVE (NEGATIVE); COLOR,URINE YELLOW (YELLOW); GLUCOSE, URINE (UA) NEGATIVE (NEGATIVE); KETONES,URINE NEGATIVE (NEGATIVE); LEUKOCYTE ESTERASE ,URINE NEGATIVE (NEGATIVE); NITRATE,URINE NEGATIVE (NEGATIVE); OCCULT BLOOD,URINE NEGATIVE (NEGATIVE); PROTEIN,URINE 30 mg/dL (NEGATIVE); UROBILINOGEN,URINE 0.2 mg/dL (0.2-1.0)
[2018-11-22 09:15] LABS: BACTERIA,URINE Rare /HPF (None Seen); RBC,URINE 0-1 /HPF (0-1); SQUAMOUS EPITHELIAL CELL,UR Rare /HPF (0-2); WBC,URINE 0-1 /HPF (0-1)
== END 2018-11-22 09:13 | disposition home or self-care (01) ==
LOC: EDH 04:37
DX: I11.0 Hypertensive heart disease with heart failure (principal); I50.9 Heart failure, unspecified; I25.10 Atherosclerotic heart disease of native coronary artery without angina pectoris; R51 Headache; E11.9 Type 2 diabetes mellitus without complications; Z87.891 Personal history of nicotine dependence; Z88.8 Allergy status to other drugs, medicaments and biological substances; Z90.49 Acquired absence of other specified parts of digestive tract
CPT/HCPCS: 36415; 70450; 71045; 80048; 80076; 81001; 82550; 82948; 83880; 84484; 85025; 93005; 96374; 96376

== ENCOUNTER 2019-01-14 10:42 | Inpatient (IN) | payer OTHER ==
[~2019-01-14] VITALS: Ht 172.7 cm; Wt 95.7 kg
[2019-01-14 11:16] LABS: BASOPHILS % (AUTO) 0.5 % (0.0-5.0); EOSINOPHILS % (AUTO) 1.9 % (0.0-8.0); LYMPHOCYTES % (AUTO) 10.9 % (21.0-51.0); MEAN CORPUSCULAR HEMOGLOBIN 28.8 pg (27.0-33.0); MEAN CORPUSCULAR HGB CONC 32.4 g/dL (32.0-36.0); MEAN CORPUSCULAR VOLUME 88.7 fL (79-99); MONOCYTES % (AUTO) 8.3 % (3.0-13.0); NEUTROPHILS % (AUTO) 78.4 % (40.0-77.0); PLATELET COUNT (AUTO) 253 K/uL (130-400); RED BLOOD CELL COUNT(AUTO) 2.33 MIL/uL (4.50-6.20); RED CELL DISTRIBUTION WIDTH 17.6 % (11.0-15.5)
[2019-01-14 11:23] LABS: HEMATOCRIT 20.6 % (42-54)
[2019-01-14 11:27] LABS: CREATININE 1.7 mg/dL (0.5-1.5); POTASSIUM 3.3 mmol/L (3.5-5.1)
[2019-01-14 11:31] LABS: ALBUMIN 3.2 g/dL (3.5-5.0); B-TYPE NATRIURETIC PEPTIDE 365 pg/mL (0-100); BILIRUBIN,TOTAL 0.3 mg/dL (0.2-1.0); PROTHROMBIN TIME 10.5 SEC (9.6-11.6); TOTAL PROTEIN, SERUM 6.5 g/dL (6.0-8.3)
[2019-01-14] MEDS ORDERED: BUMETANIDE 0.25 MG/ML IV SCH (14:00)
[2019-01-14] MEDS ORDERED: LACTULOSE 20 GM/30 ML UDCUP PO PRN (14:00)
[2019-01-14] MEDS ORDERED: ACETAMINOPHEN 325 MG TAB PO PRN (14:00)
[2019-01-14] MEDS ORDERED: ZOLPIDEM TARTRATE 5 MG TAB PO PRN (14:00)
[2019-01-14] MEDS ORDERED: DiphenhydrAMINE HCL 50 MG/ML VIAL IVP PRN (14:00)
[2019-01-14] MEDS ORDERED: GUAIFENESIN-DM 200/20 MG 10 ML PO PRN (14:00)
[2019-01-14] MEDS ORDERED: ONDANSETRON HCL 4 MG/2 ML VIAL IVP PRN (14:00)
[2019-01-14] MEDS ORDERED: MAG HYDROX/AL HYDROX/SIMETH ES 30 ML SUSP UDCUP PO PRN (14:00)
[2019-01-14] MEDS ORDERED: NITROGLYCERIN 0.4 MG SL TAB SL PRN (14:00)
[2019-01-14] MEDS ORDERED: CLONIDINE HCL 0.1 MG TABLET PO PRN (14:00)
[2019-01-14] MEDS ORDERED: DIPHENHYDRAMINE HCL 25 MG CAPSULE PO PRN (14:00)
[2019-01-14] MEDS ORDERED: SODIUM CHLORIDE 0.9% 250 ML IV ONE (17:15)
--- NOTE | 2019-01-14 18:15 | NUR ---
RECEIVED FROM ED VIA STRETCHER. AAOX3, RESP.'S EVEN AND UNLABORED. ORIENTED TO ROOM AND SURROUNDINGS. O2 AT 2L/NC. BLOOD TRANSFUSION IN PROGRESS. BUMEX GTT IN PLACE. CALL LIGHT WITHIN REACH. BED LOW, SIDE RAILS UP X2.
[2019-01-14 18:26] VITALS: BP 138/79
[2019-01-14 18:56] LABS: TROPONIN I 0.12 ng/mL (0.00-0.06)
[2019-01-14 20:07] VITALS: BP 165/73
[2019-01-14] MEDS: ACETAMINOPHEN 325 MG TAB PO PRN (23:04)
[2019-01-15] VITALS (25 sets, daily range): BP systolic 121–170; BP diastolic 50–87
[2019-01-15 04:30] LABS: HEMATOCRIT 29.3 % (42-54); MEAN CORPUSCULAR HEMOGLOBIN 29.4 pg (27.0-33.0); MEAN CORPUSCULAR HGB CONC 33.5 g/dL (32.0-36.0); MEAN CORPUSCULAR VOLUME 87.6 fL (79-99); PLATELET COUNT (AUTO) 249 K/uL (130-400); RED BLOOD CELL COUNT(AUTO) 3.34 MIL/uL (4.50-6.20); RED CELL DISTRIBUTION WIDTH 16.3 % (11.0-15.5); WHITE BLOOD COUNT (AUTO) 10.1 K/uL (4.8-10.8)
[2019-01-15 04:46] LABS: B-TYPE NATRIURETIC PEPTIDE 387 pg/mL (0-100)
[2019-01-15 04:49] LABS: INR 1.02 (0.85-1.15); PARTIAL THROMBOPLASTIN TIME 29.5 SEC (26.3-35.5); PROTHROMBIN TIME 10.7 SEC (9.6-11.6)
[2019-01-15 05:00] LABS: ALBUMIN 3.3 g/dL (3.5-5.0); CARBON DIOXIDE 31 mmol/L (21-32); CHLORIDE 99 mmol/L (101-111); CREATINE KINASE, TOTAL 57 U/L (21-232); CREATININE 1.4 mg/dL (0.5-1.5); GLOMERULAR FILTR. RATE CALC 51 mL/min (>60); GLUCOSE,RANDOM 197 mg/dL (70-105); MYOGLOBIN 104 ng/mL (10-92); PHOSPHORUS 3.9 mg/dL (2.5-4.9); POTASSIUM 3.9 mmol/L (3.5-5.1); SODIUM SERUM 140 mmol/L (136-145); TROPONIN I 0.11 ng/mL (0.00-0.06); UREA NITROGEN, BLOOD 39 mg/dL (7-18)
--- NOTE | 2019-01-15 07:45 | NUR ---
ASSESSMENT PT IS AAOX3 DENIES CP DENIES SOB DENIES NV NO COMPLAINTS AT THIS TIME. SITTING UP IN CHAIR, BUMEX GTT INFUSING ORDERED, REZA CATH IS IN PLACE, SECURED WITH LEG STRAP/DEVICE, DRAINING TO GRAVITY. NPO STATUS FOR EGD TODAY. CALL LIGHT WITHIN REACH.
[2019-01-15] MEDS ORDERED: ASPI-1026 PO (08:03)
[2019-01-15] MEDS ORDERED: NIFE20CA PO (08:03)
[2019-01-15] MEDS ORDERED: TERB250T51 PO (08:03)
[2019-01-15] MEDS ORDERED: FOLI1CAP16 PO (08:03)
[2019-01-15] MEDS ORDERED: CHOL100040 PO (08:03)
[2019-01-15] MEDS ORDERED: METF-446 PO (08:03)
[2019-01-15] MEDS ORDERED: BUME1TAB7 PO (08:03)
[2019-01-15] MEDS ORDERED: INSU100V12 SQ (08:03)
[2019-01-15] MEDS: BUMETANIDE 0.25 MG/ML 4 ML VIAL IVP SCH ×3 (08:13→20:13)
--- NOTE | 2019-01-15 08:30 | NUR ---
DOWN TO GI LAB VIA BED WITH GI LAB STAFF
[2019-01-15] MEDS ORDERED: PHENYLEPHRINE HCL 10 MG/ML 1ML VIAL IV ONE (08:34)
[2019-01-15] MEDS ORDERED: PROPOFOL 10 MG/ML 20ML VIAL IV ONE (08:34)
--- NOTE | 2019-01-15 09:45 | NUR ---
RETURNED FROM GI LAB AAOX3 NO COMPLAINTS
[2019-01-15] MEDS: SUCRALFATE 1 GM/10 ML PO SCH ×2 (13:00→20:14)
[2019-01-15] MEDS: MAGNESIUM 2GM PREMIX 50ML 50 ML IV PRN (13:00)
--- NOTE | 2019-01-15 13:00 | NUR ---
DR DANIELS IS AWARE OF CONSULT STATES HE WILL COME BY TO SEE PATIENT
--- NOTE | 2019-01-15 14:38 | NUR ---
RD NOTIFICATION Dx: Acute Blood Loss Anemia, Acute CHF. Hx: DM, HTN, Hyperlipidemia, Urinary retention. Diet: Advanced to 75gmCCD/ 6 small meals. LBM: 01/14; tarry stools noted. Pt stated no longer having tarry stools. No difficulty chewing or swallowing food/ liquids. PO intake 75-100% and has good appetite as per pt. RD recommends continue current diet. Pt tolerating diet well and tarry stools resolved as per pt. RD will follow up as needed. Alexandro Nicole, MS, RDN, LD Addendum: 01/15/19 at [address] Amended: Links added.
--- NOTE | 2019-01-15 14:45 | NUR ---
DR DANIELS ROUNDED SAW PATIENT
[2019-01-15] MEDS: INSULIN HUMULIN R 100 UNIT/ML 3ML SQ SCH ×2 (15:54→21:00)
--- NOTE | 2019-01-15 17:20 | NUR ---
LIS PLAN PATIENT IN RESTROOM MULTIPLE TIMES. Addendum: 01/15/19 at 1721 by KEISHA WALLER RN CM Amended: Links added.
[2019-01-15] MEDS ORDERED: DOCUSATE SODIUM 100 MG CAP PO PRN (18:00)
[2019-01-15] MEDS: GABAPENTIN 300 MG CAPSULE PO SCH (20:14)
[2019-01-15] MEDS: ATORVASTATIN CALCIUM 10 MG TABLET PO SCH (20:14)
[2019-01-15] MEDS: HYDRALAZINE HCL 25 MG TABLET PO SCH (20:15)
--- NOTE | 2019-01-15 21:00 | NUR ---
PT IN CHAIR. ABLE TO AMBULATE. MINIMAL SOB. ON NASAL CANNULA AT 2LPM. PT AAO3. PERRLA. ON BUMEX IV PUSH. POTASSIUM BEING MONITORED. PT STATES NO CONCERNS AT THIS TIME.
[2019-01-16 04:00] VITALS: BP 162/96
[2019-01-16 04:33] LABS: MEAN CORPUSCULAR HEMOGLOBIN 29.4 pg (27.0-33.0); MEAN CORPUSCULAR HGB CONC 33.8 g/dL (32.0-36.0); MEAN CORPUSCULAR VOLUME 86.9 fL (79-99); PLATELET COUNT (AUTO) 253 K/uL (130-400); RED BLOOD CELL COUNT(AUTO) 3.33 MIL/uL (4.50-6.20); RED CELL DISTRIBUTION WIDTH 16.5 % (11.0-15.5); WHITE BLOOD COUNT (AUTO) 8.9 K/uL (4.8-10.8)
[2019-01-16 04:38] LABS: B-TYPE NATRIURETIC PEPTIDE 233 pg/mL (0-100)
[2019-01-16 05:05] LABS: POTASSIUM 3.2 mmol/L (3.5-5.1)
[2019-01-16 05:06] LABS: ALBUMIN 2.6 g/dL (3.5-5.0); CREATININE 1.3 mg/dL (0.5-1.5); MAGNESIUM 1.7 mg/dL (1.80-2.40)
[2019-01-16 05:23] LABS: PHOSPHORUS 3.2 mg/dL (2.5-4.9)
[2019-01-16] MEDS ORDERED: POTASSIUM CHLORIDE 20 MEQ ERTAB PO ONE (05:37)
[2019-01-16] MEDS: MAGNESIUM 2GM PREMIX 50ML 50 ML IV PRN (05:50)
[2019-01-16] MEDS ORDERED: POTASSIUM CHLORIDE 10% ELIXIR 20 MEQ/15 ML UDCUP PO PRN (06:00)
[2019-01-16] MEDS ORDERED: POTASSIUM CHLORIDE 20MEQ/100ML 100 ML IV PRN (06:00)
[2019-01-16] MEDS ORDERED: LIDOCAINE HCL-MPF 1% 2ML VIAL IV PRN (06:00)
[2019-01-16] MEDS: INSULIN HUMULIN R 100 UNIT/ML 3ML SQ SCH ×4 (06:37→20:50)
[2019-01-16] MEDS: INSULIN GLARGINE 100 UNITS/ML 10 ML VIAL SQ SCH (06:37)
[2019-01-16] MEDS: **HM**(Cholecalciferol (Vitamin D3) (Vitamin D3) 1,000 UNIT PO SCH (06:49)
[2019-01-16 07:40] VITALS: BP 157/73
[2019-01-16] MEDS: VITAMIN B COMPLEX 1 CAPSULE PO SCH (07:49)
[2019-01-16] MEDS: ALLOPURINOL 300 MG TABLET PO SCH (07:49)
[2019-01-16] MEDS: HYDRALAZINE HCL 25 MG TABLET PO SCH ×3 (07:49→21:33)
[2019-01-16] MEDS: ASPIRIN 325 MG TABLET PO SCH (07:50)
[2019-01-16] MEDS: BUMETANIDE 0.25 MG/ML 4 ML VIAL IVP SCH ×3 (07:50→21:33)
[2019-01-16] MEDS: TAMSULOSIN HCL 0.4 MG CAP.ER.24H PO SCH (07:50)
[2019-01-16] MEDS: FOLIC ACID/VITAMIN B COMP W-C 1 MG CAP/TAB PO SCH (07:50)
[2019-01-16] MEDS: SUCRALFATE 1 GM/10 ML PO SCH ×3 (07:50→21:32)
[2019-01-16] MEDS: VITAMIN E 400 UNIT CAPSULE PO SCH (07:50)
[2019-01-16] MEDS: GABAPENTIN 300 MG CAPSULE PO SCH ×3 (07:51→21:33)
--- NOTE | 2019-01-16 08:00 | NUR ---
ASSESSMENT PT IS AAOX3 DENIES CP DENIES SOB DENIES NV NO COMPLAINTS. SITTING UP IN CHAIR. AM MEDS GIVEN, CALL LIGHT WITHIN REACH, FAMILY IS AT BEDSIDE.
[2019-01-16] MEDS: POTASSIUM CHLORIDE 20 MEQ ERTAB PO PRN ×2 (08:36→09:29)
[2019-01-16] MEDS: MAGNESIUM OXIDE 400 MG TABLET PO SCH (10:47)
[2019-01-16 11:28] VITALS: BP 152/96
[2019-01-16 15:07] VITALS: BP 160/63
[2019-01-16 19:00] VITALS: BP 158/76
[2019-01-16] MEDS: ATORVASTATIN CALCIUM 10 MG TABLET PO SCH (21:33)
[2019-01-16] MEDS: SPIRONOLACTONE 25 MG TAB PO SCH (21:33)
[2019-01-16] MEDS: PANTOPRAZOLE SODIUM 40 MG TABLET.DR PO SCH (21:33)
[2019-01-16 23:00] VITALS: BP 162/68
[2019-01-17 04:00] VITALS: BP 150/68
[2019-01-17 04:16] LABS: HEMATOCRIT 27.8 % (42-54); MEAN CORPUSCULAR HEMOGLOBIN 28.9 pg (27.0-33.0); MEAN CORPUSCULAR HGB CONC 33.2 g/dL (32.0-36.0); PLATELET COUNT (AUTO) 264 K/uL (130-400); RED BLOOD CELL COUNT(AUTO) 3.19 MIL/uL (4.50-6.20); WHITE BLOOD COUNT (AUTO) 9.2 K/uL (4.8-10.8)
[2019-01-17 04:36] LABS: CREATININE 1.3 mg/dL (0.5-1.5); MAGNESIUM 1.7 mg/dL (1.80-2.40); POTASSIUM 3.9 mmol/L (3.5-5.1)
[2019-01-17 04:45] LABS: B-TYPE NATRIURETIC PEPTIDE 139 pg/mL (0-100)
[2019-01-17] MEDS: ACETAMINOPHEN 325 MG TAB PO PRN (05:04)
[2019-01-17] MEDS: MAGNESIUM 2GM PREMIX 50ML 50 ML IV PRN (05:04)
[2019-01-17] MEDS: INSULIN HUMULIN R 100 UNIT/ML 3ML SQ SCH ×2 (06:19→11:30)
[2019-01-17] MEDS: INSULIN GLARGINE 100 UNITS/ML 10 ML VIAL SQ SCH (06:23)
[2019-01-17 07:38] VITALS: BP 98/50
[2019-01-17] MEDS: **HM**(Cholecalciferol (Vitamin D3) (Vitamin D3) 1,000 UNIT PO SCH (09:00)
[2019-01-17] MEDS ORDERED: CARVEDILOL 3.125 MG TABLET PO SCH (09:00)
[2019-01-17] MEDS: PANTOPRAZOLE SODIUM 40 MG TABLET.DR PO SCH (09:48)
[2019-01-17] MEDS: TAMSULOSIN HCL 0.4 MG CAP.ER.24H PO SCH (09:49)
[2019-01-17] MEDS: SPIRONOLACTONE 25 MG TAB PO SCH (09:50)
[2019-01-17] MEDS: GABAPENTIN 300 MG CAPSULE PO SCH (09:50)
[2019-01-17] MEDS: FOLIC ACID/VITAMIN B COMP W-C 1 MG CAP/TAB PO SCH (09:50)
[2019-01-17] MEDS: MAGNESIUM OXIDE 400 MG TABLET PO SCH (09:50)
[2019-01-17] MEDS: VITAMIN B COMPLEX 1 CAPSULE PO SCH (09:53)
[2019-01-17] MEDS: ASPIRIN 325 MG TABLET PO SCH (09:53)
[2019-01-17] MEDS: ALLOPURINOL 300 MG TABLET PO SCH (09:53)
[2019-01-17] MEDS: VITAMIN E 400 UNIT CAPSULE PO SCH (09:53)
[2019-01-17] MEDS: HYDRALAZINE HCL 25 MG TABLET PO SCH (09:54)
[2019-01-17] MEDS: BUMETANIDE 0.25 MG/ML 4 ML VIAL IVP SCH (09:54)
[2019-01-17] MEDS: SUCRALFATE 1 GM/10 ML PO SCH (09:54)
--- NOTE | 2019-01-17 10:30 | NUR ---
REZA REMOVED PER DR CHOUDHARY ORDER, TOLERATED WELL, PT INSTRUCTED TO PROVIDE URINE SAMPLE IN URINAL GIVEN WITHIN 6 HOURS. PT UNDERSTOOD. CALL LIGHT WITHIN REACH, FAMILY AT BEDSIDE.
[2019-01-17 12:05] VITALS: BP 156/72
--- NOTE | 2019-01-17 13:04 | NUR ---
DISCONTINUED R AC IV.
--- NOTE | 2019-01-17 14:48 | NUR ---
DC PLAN VISITED WITH PATIENT. PATIENT SLEEPING. LIVES WITH SPOUSE. INDEPENDENT ABLE TO PERFORM ADL'S. DC PLAN TO RETURN HOME. Addendum: 01/17/19 at 1449 by KEISHA WALLER RN CM Amended: Links added.
[2019-01-17] MEDS ORDERED: MAGOX PO (15:23)
[2019-01-17] MEDS ORDERED: PANT40TA PO (15:23)
[2019-01-17] MEDS ORDERED: SPIR25TA PO (15:23)
[2019-01-17] MEDS ORDERED: CARV3.1262 PO (15:23)
[2019-01-17] MEDS ORDERED: CARAL PO (15:23)
--- NOTE | 2019-01-17 16:00 | NUR ---
DISCHARGE INSTRUCTIONS GIVEN, PIV REMOVED AND INTACT, DISCHARGED HOME TO FAMILY VEHICLE VIA WHEELCHAIR.
== END 2019-01-17 16:15 | disposition home or self-care (01) | DRG 377 ==
LOC: EDH 10:42 → EDHIP 11:20 → 2DH 16:57
PROVIDERS: ADMIT Internal Medicine; ATTEND Internal Medicine
PROC: 30233N1 Transfusion of Nonautologous Red Blood Cells into Peripheral Vein, Percutaneous Approach (ICD-10-PCS; principal; 2019-01-14)
PROC: 0DB58ZX Excision of Esophagus, Via Natural or Artificial Opening Endoscopic, Diagnostic (ICD-10-PCS; 2019-01-15)
PROC: 0DB68ZX Excision of Stomach, Via Natural or Artificial Opening Endoscopic, Diagnostic (ICD-10-PCS; 2019-01-15)
DX: K29.01 Acute gastritis with bleeding (principal); I50.31 Acute diastolic (congestive) heart failure; D62 Acute posthemorrhagic anemia; I13.0 Hypertensive heart and chronic kidney disease with heart failure and stage 1 through stage 4 chronic kidney disease, or unspecified chronic kidney disease; K20.9 Esophagitis, unspecified; E11.22 Type 2 diabetes mellitus with diabetic chronic kidney disease; R33.9 Retention of urine, unspecified; R33.8 Other retention of urine; N40.1 Benign prostatic hyperplasia with lower urinary tract symptoms; E83.42 Hypomagnesemia; N18.2 Chronic kidney disease, stage 2 (mild); Z88.8 Allergy status to other drugs, medicaments and biological substances; Z82.5 Family history of asthma and other chronic lower respiratory diseases; Z82.49 Family history of ischemic heart disease and other diseases of the circulatory system; Z90.49 Acquired absence of other specified parts of digestive tract
CPT/HCPCS: 36415; 36430; 43239; 71045; 80048; 80053; 82040; 82270; 82550; 82948; 83735; 83874; 83880; 84100; 84145; 84484; 85025; 85027; 85610; 85730; 86850; 86900; 86901; 86922; 88305; 93005; 93306; A4344; G0378; J1815; J2370; J2704; J3475; J3490; J7030; P9016

== ENCOUNTER 2019-01-24 18:47 | Inpatient (IN) | payer OTHER ==
[~2019-01-24] VITALS: Ht 170.2 cm; Wt 100.0 kg
[~2019-01-24 18:47] MED LIST changes: +ASPI-1026 PO; -ASPI-1197 PO; +BUME1TAB7 PO; +CARAL PO; +CARV3.1262 PO; +CHOL100040 PO; -CHOL40002 PO; -CLON0.1T PO; -CYAN10007 IJ; +FOLI1CAP16 PO; -GARL1000 PO; -INSU100I21 SQ; +INSU100V12 SQ; +MAGOX PO; -METF-445 PO; +METF-446 PO; +PANT40TA PO; +SPIR25TA PO; -SULF1TAB42 PO; -TORS20TA4 PO; -VITA40TA PO
[2019-01-24 19:06] LABS: BASOPHILS % (AUTO) 0.7 % (0.0-5.0); EOSINOPHILS % (AUTO) 1.2 % (0.0-8.0); LYMPHOCYTES % (AUTO) 13.2 % (21.0-51.0); MEAN CORPUSCULAR HEMOGLOBIN 29.2 pg (27.0-33.0); MEAN CORPUSCULAR VOLUME 88.4 fL (79-99); MONOCYTES % (AUTO) 6.5 % (3.0-13.0); NEUTROPHILS % (AUTO) 78.4 % (40.0-77.0); NUCLEATED RED BLOOD CELLS 0.2 % (0.0-0.19); PLATELET COUNT (AUTO) 338 K/uL (130-400); RED BLOOD CELL COUNT(AUTO) 2.05 MIL/uL (4.50-6.20); RED CELL DISTRIBUTION WIDTH 17.1 % (11.0-15.5); WHITE BLOOD COUNT (AUTO) 12.3 K/uL (4.8-10.8)
[2019-01-24 19:11] LABS: HEMATOCRIT 18.1 % (42-54)
[2019-01-24 19:17] LABS: CREATININE 2.3 mg/dL (0.5-1.5); POTASSIUM 4.3 mmol/L (3.5-5.1)
[2019-01-24 19:21] LABS: ALBUMIN 3.1 g/dL (3.5-5.0); BILIRUBIN,TOTAL 0.3 mg/dL (0.2-1.0); TOTAL PROTEIN, SERUM 6.2 g/dL (6.0-8.3)
[2019-01-24 19:37] LABS: INR 0.99 (0.85-1.15); PARTIAL THROMBOPLASTIN TIME 23.6 SEC (26.3-35.5); PROTHROMBIN TIME 10.4 SEC (9.6-11.6)
[2019-01-24] MEDS ORDERED: TETANUS/DIPHTHERIA TOXOID [ADULT] 0.5 ML VIAL IM ONE (19:54)
[2019-01-24] MEDS ORDERED: SODIUM CHLORIDE 0.9% 500ML 500 ML IV ONE (19:55)
[2019-01-24] MEDS ORDERED: ONDANSETRON HCL 4 MG/2 ML VIAL IV PRN (20:15)
[2019-01-24] MEDS ORDERED: ACETAMINOPHEN 325 MG TAB PO PRN ×2 (20:15)
[2019-01-24] MEDS ORDERED: LACTULOSE 20 GM/30 ML UDCUP PO PRN (20:15)
[2019-01-24] MEDS ORDERED: SODIUM CHLORIDE 0.9% 250 ML IV ONE (22:33)
[2019-01-24] MEDS ORDERED: SODIUM CHLORIDE 0.9% 100 ML IV ONE (23:15)
[2019-01-24 23:55] VITALS: BP 123/64
--- NOTE | 2019-01-25 | NUR ---
NURSING NOTE Pt arrived to floor at 2355 with . Pt awake alert and oriented. Pt has PRBC already running that was started in the ER and the Protonix drip that was started in ER. Pt denies any pain, chest pain or sob at this time, pt stating he is just tired.
[2019-01-25 04:25] VITALS: BP 124/51
[2019-01-25] MEDS ORDERED: GLUCAGON 1MG KIT 1 MG ML IM PRN (05:45)
[2019-01-25] MEDS ORDERED: DEXTROSE 50%-WATER 50 ML DISP.SYRIN IV PRN (05:45)
[2019-01-25] MEDS: INSULIN HUMULIN R 100 UNIT/ML 3ML SQ SCH ×4 (06:38→21:10)
[2019-01-25 08:00] VITALS: BP 135/50
[2019-01-25 08:56] LABS: BASOPHILS % (AUTO) 0.4 % (0.0-5.0); HEMATOCRIT 23.1 % (42-54); LYMPHOCYTES % (AUTO) 12.8 % (21.0-51.0); MEAN CORPUSCULAR HEMOGLOBIN 29.8 pg (27.0-33.0); MEAN CORPUSCULAR HGB CONC 33.6 g/dL (32.0-36.0); MEAN CORPUSCULAR VOLUME 88.8 fL (79-99); MONOCYTES % (AUTO) 7.6 % (3.0-13.0); NEUTROPHILS % (AUTO) 78.2 % (40.0-77.0); NUCLEATED RED BLOOD CELLS 0.1 % (0.0-0.19); PLATELET COUNT (AUTO) 267 K/uL (130-400); RED CELL DISTRIBUTION WIDTH 16.3 % (11.0-15.5)
[2019-01-25 09:10] LABS: CREATININE 2.3 mg/dL (0.5-1.5); POTASSIUM 4.4 mmol/L (3.5-5.1)
[2019-01-25] MEDS: SODIUM CHLORIDE 0.9% 1000ML 1,000 ML IV SCH ×2 (09:33→19:42)
[2019-01-25] MEDS: PANTOPRAZOLE SODIUM 80 MG in SODIUM CHLORIDE 0.9% 100 ML IV SCH ×2 (09:34→21:12)
[2019-01-25 09:41] LABS: APPEARANCE,URINE Clear (CLEAR); BILIRUBIN,URINE Negative (NEGATIVE); COLOR,URINE Yellow (YELLOW); GLUCOSE, URINE (UA) Negative (NEGATIVE); KETONES,URINE Negative (NEGATIVE); LEUKOCYTE ESTERASE ,URINE Negative (NEGATIVE); NITRATE,URINE Negative (NEGATIVE); OCCULT BLOOD,URINE Negative (NEGATIVE); PROTEIN,URINE Negative (NEGATIVE); UROBILINOGEN,URINE 0.2 mg/dL (0.2-1.0)
[2019-01-25 11:50] VITALS: BP_SYST 124; BP_SYST 132; BP_DIAS 46
--- NOTE | 2019-01-25 15:40 | NUR ---
DISCUSSION OF PLAN OF CARE DISCUSSED DR. ABBAIS CONSULT NOTE W DR. GUSTAFSON; ASKED ABOUT IV VENOFER, EPO, AND DC PLANNING TO INCLUDE FOLLOW UP WITH ST [facility] FOR MORE IV IRON INFUSIONS IF NECESSARY? ORDER RECD TO MAKE PT AN INPATIENT. CM TO FOLLOW
[2019-01-25 15:47] VITALS: BP 131/50
--- NOTE | 2019-01-25 17:30 | NUR ---
INITIAL PATIENT AND SPOUSE AND FRIEND AT BEDSIDE; PT IS PREV INDP, DRIVES, ACTIVE, HAS 'LOTS OF DME I DON'T USE' USES A CANE OCCASIONALLY, [facility]ES [facility]; HAS HAD PREVIOUS BOUTS OF ANEMIA, HERE FOR SAME. LIVES WITH SPOUSE SIENNA WHO WILL PROVIDE TRANSPORT HOME, EXPECT DC TO HOME IN 24-HRS. CM TO FOLLOW Addendum: 01/25/19 at 2040 by CHASIDY CROWLEY RN CM Amended: Links added.
[2019-01-25] MEDS ORDERED: TERB250T51 PO (17:34)
--- NOTE | 2019-01-25 18:53 | NUR ---
PAGED DR. MYERS PAGED DR. MYERS AT 1850 HOURS ([phone]) TO ADVISE GI BLEED SCAN RESULTS REQUESTED. RESULTS OF BLEED SCAN WERE NEGATIVE FOR ACUTE BLEEDING.
--- NOTE | 2019-01-25 19:01 | NUR ---
DR. LOUIS MYERS RETURNED PAGE AT 1900 HOURS AND WAS ADVISED OF GI BLEED SCAN RESULTS.
[2019-01-25 20:00] VITALS: BP 149/50
[2019-01-26] VITALS: BP 151/51
[2019-01-26 04:00] VITALS: BP 140/56
[2019-01-26 04:53] LABS: BASOPHILS % (AUTO) 0.6 % (0.0-5.0); EOSINOPHILS % (AUTO) 1.7 % (0.0-8.0); HEMATOCRIT 23.4 % (42-54); LYMPHOCYTES % (AUTO) 12.4 % (21.0-51.0); MEAN CORPUSCULAR HEMOGLOBIN 30.6 pg (27.0-33.0); MEAN CORPUSCULAR HGB CONC 33.6 g/dL (32.0-36.0); MEAN CORPUSCULAR VOLUME 91.1 fL (79-99); MONOCYTES % (AUTO) 6.9 % (3.0-13.0); NEUTROPHILS % (AUTO) 78.4 % (40.0-77.0); NUCLEATED RED BLOOD CELLS 0.1 % (0.0-0.19); PLATELET COUNT (AUTO) 261 K/uL (130-400); RED BLOOD CELL COUNT(AUTO) 2.57 MIL/uL (4.50-6.20); RED CELL DISTRIBUTION WIDTH 16.6 % (11.0-15.5)
[2019-01-26 05:07] LABS: CREATININE 1.8 mg/dL (0.5-1.5); MAGNESIUM 2.1 mg/dL (1.80-2.40); PHOSPHORUS 3.8 mg/dL (2.5-4.9); URIC ACID 5.8 mg/dL (2.6-7.2)
[2019-01-26 05:39] LABS: % IRON SATURATION 6.8 % (30-44)
[2019-01-26] MEDS: SODIUM CHLORIDE 0.9% 1000ML 1,000 ML IV SCH ×2 (05:55→09:10)
[2019-01-26] MEDS: INSULIN HUMULIN R 100 UNIT/ML 3ML SQ SCH ×4 (06:24→22:44)
[2019-01-26] MEDS: PANTOPRAZOLE SODIUM 80 MG in SODIUM CHLORIDE 0.9% 100 ML IV SCH (06:24)
[2019-01-26 08:00] VITALS: BP 141/58
--- NOTE | 2019-01-26 08:00 | NUR ---
NOTE AAOX3. DENIES PAIN OR DISCOMFORT DENIES BLEEDING IN STOOL. REPORTED BLACK STOOLS LAST TIME HE HAD BM.
[2019-01-26] MEDS ORDERED: SOD FERRIC GLUC COMPLEX/SUC 125 MG in SODIUM CHLORIDE 0.9% 100 ML IV SCH (09:00)
[2019-01-26] MEDS: FOLIC ACID/VITAMIN B COMP W-C 1 MG CAP/TAB PO SCH (11:55)
[2019-01-26 12:00] VITALS: BP 149/55
[2019-01-26] MEDS ORDERED: FERROUS SULFATE 325 MG TABLET.DR PO SCH (14:00)
[2019-01-26] MEDS ORDERED: COMPOUND IV MISC 1 EACH IVSOLN MISC PRN (15:45)
[2019-01-26 16:00] VITALS: BP 196/83
[2019-01-26] MEDS: IRON SUCROSE COMPLEX 100 MG in SODIUM CHLORIDE 0.9% 50 ML IV SCH (17:42)
--- NOTE | 2019-01-26 18:00 | NUR ---
NOTE NORMAL BM EARLIER. NO BLACK OR RED STOOL. NO N/V NO OTHER PROBLEM VOICED. NO DISTRESS OR SOB. HE HAS BEEN STARTED ON CLEAR LIQUID DIET.
[2019-01-26 19:57] VITALS: BP 152/75
[2019-01-26] MEDS ORDERED: INSULIN GLARGINE 100 UNITS/ML 10 ML VIAL SQ SCH (21:00)
[2019-01-27 00:25] VITALS: BP 156/69
[2019-01-27] MEDS: SODIUM CHLORIDE 0.9% 1000ML 1,000 ML IV SCH ×2 (01:15→11:15)
[2019-01-27 04:22] VITALS: BP 176/65
[2019-01-27 04:25] LABS: MEAN CORPUSCULAR HEMOGLOBIN 30.1 pg (27.0-33.0); MEAN CORPUSCULAR HGB CONC 33.4 g/dL (32.0-36.0); PLATELET COUNT (AUTO) 315 K/uL (130-400); RED BLOOD CELL COUNT(AUTO) 2.66 MIL/uL (4.50-6.20); RED CELL DISTRIBUTION WIDTH 16.9 % (11.0-15.5); WHITE BLOOD COUNT (AUTO) 8.5 K/uL (4.8-10.8)
[2019-01-27 04:45] LABS: HEMOGLOBIN A1C 6.7 % (4.0-6.0)
[2019-01-27 04:58] LABS: CREATININE 1.4 mg/dL (0.5-1.5); POTASSIUM 3.5 mmol/L (3.5-5.1); THYROID STIMULATING HORMONE 2.15 uIU/mL (0.36-3.74)
[2019-01-27] MEDS: INSULIN HUMULIN R 100 UNIT/ML 3ML SQ SCH ×2 (05:17→12:58)
--- NOTE | 2019-01-27 08:00 | NUR ---
NOTE AAOX3 NO CHANGE IN CONDITION SINCE YESTERDAY. DENIES ANY BLEEDING IN STOOL. HGB UP TO 8 TODAY. I WILL NOTIFY DR ABBASI ABOUT RESULTS AND ASK ABOUT PLAN AND PROTONIX DRIP.
[2019-01-27 08:02] VITALS: BP 182/78
[2019-01-27 08:11] LABS: HEPATITIS Bs ANTIGEN SCREEN P Negative (Negative)
[2019-01-27] MEDS: FOLIC ACID/VITAMIN B COMP W-C 1 MG CAP/TAB PO SCH (09:16)
[2019-01-27] MEDS: IRON SUCROSE COMPLEX 100 MG in SODIUM CHLORIDE 0.9% 50 ML IV SCH (09:16)
[2019-01-27] MEDS ORDERED: DOCUSATE SODIUM 100 MG CAP PO PRN (09:30)
[2019-01-27] MEDS ORDERED: CARVEDILOL 3.125 MG TABLET PO SCH ×2 (11:15→21:00)
[2019-01-27] MEDS ORDERED: HYDRALAZINE HCL 25 MG TABLET PO SCH ×2 (11:15→14:00)
[2019-01-27 12:00] VITALS: BP 185/78
--- NOTE | 2019-01-27 12:00 | NUR ---
NOTE SPOKE TO DR ABBASI. HE CLEARED PATIENT FOR DISCHARGE AND HE WILL GO HOME ONCE CLEARED BY HOSPITALISTS.
[2019-01-27] MEDS ORDERED: GABAPENTIN 300 MG CAPSULE PO SCH (14:00)
[2019-01-27] MEDS ORDERED: SUCRALFATE 1 GM/10 ML PO SCH (14:00)
[2019-01-27] MEDS ORDERED: FERS325 PO (14:24)
[2019-01-27 16:12] VITALS: BP 142/85
--- NOTE | 2019-01-27 16:30 | NUR ---
NOTE DISCHARGE ISNTRUCTIONS GIVEN AT THIS IMTE. VERBALIZED UNDERSTANDING. RFER TO DC SUMMARY FOR DETAILS.
[2019-01-27] MEDS ORDERED: GLIPIZIDE 5 MG TABLET PO SCH (17:00)
[2019-01-27] MEDS ORDERED: ATORVASTATIN CALCIUM 10 MG TABLET PO SCH (21:00)
[2019-01-27] MEDS ORDERED: PHARMACY COMMUNICATION MISC SCH (21:00)
[2019-01-27] MEDS ORDERED: SPIRONOLACTONE 25 MG TAB PO SCH (21:00)
[2019-01-27] MEDS ORDERED: BUMETANIDE 1 MG TAB PO SCH (21:00)
[2019-01-27] MEDS ORDERED: PANTOPRAZOLE SODIUM 40 MG TABLET.DR PO SCH (21:00)
[2019-01-28] MEDS ORDERED: ASPIRIN 325 MG TABLET PO SCH (09:00)
[2019-01-28] MEDS ORDERED: TAMSULOSIN HCL 0.4 MG CAP.ER.24H PO SCH (09:00)
[2019-01-28] MEDS ORDERED: VITAMIN E 400 UNIT CAPSULE PO SCH (09:00)
[2019-01-28] MEDS ORDERED: ALLOPURINOL 300 MG TABLET PO SCH (09:00)
== END 2019-01-27 16:40 | disposition home or self-care (01) | DRG 378 ==
LOC: EDH 18:47 → EDHIP 20:07 → OBSVTOIN 20:07 → 3AH 22:51
PROVIDERS: ADMIT Internal Medicine; ATTEND Internal Medicine
PROC: 30233N1 Transfusion of Nonautologous Red Blood Cells into Peripheral Vein, Percutaneous Approach (ICD-10-PCS; principal; 2019-01-24)
DX: K92.2 Gastrointestinal hemorrhage, unspecified (principal); D62 Acute posthemorrhagic anemia; E44.0 Moderate protein-calorie malnutrition; E87.1 Hypo-osmolality and hyponatremia; I50.32 Chronic diastolic (congestive) heart failure; N17.9 Acute kidney failure, unspecified; I13.0 Hypertensive heart and chronic kidney disease with heart failure and stage 1 through stage 4 chronic kidney disease, or unspecified chronic kidney disease; D72.829 Elevated white blood cell count, unspecified; E86.1 Hypovolemia; R27.8 Other lack of coordination; N18.9 Chronic kidney disease, unspecified; E11.22 Type 2 diabetes mellitus with diabetic chronic kidney disease; I95.1 Orthostatic hypotension; M25.512 Pain in left shoulder; M75.00 Adhesive capsulitis of unspecified shoulder; Z68.34 Body mass index [BMI] 34.0-34.9, adult; E78.5 Hyperlipidemia, unspecified; J45.909 Unspecified asthma, uncomplicated; K20.9 Esophagitis, unspecified; Z79.82 Long term (current) use of aspirin; Z82.49 Family history of ischemic heart disease and other diseases of the circulatory system; R53.81 Other malaise; Z88.8 Allergy status to other drugs, medicaments and biological substances; E11.21 Type 2 diabetes mellitus with diabetic nephropathy
CPT/HCPCS: 36415; 36430; 70450; 71045; 73030; 76700; 76770; 78278; 80048; 80053; 81003; 82270; 82550; 82728; 82948; 83036; 83540; 83550; 83735; 84100; 84443; 84484; 84550; 85025; 85027; 85060; 85610; 85730; 86334; 86850; 86900; 86901; 86922; 87340; 87520; 90714; 93005; 99291; A9512; C9113; G0378; J1756; J1815; J7030; J7040; P9016

== ENCOUNTER 2019-08-06 13:09 | Inpatient (IN) | payer OTHER ==
[~2019-08-06] VITALS: Ht 175.3 cm; Wt 93.3 kg
[~2019-08-06 13:09] MED LIST changes: -ASPI-1026 PO; +FERS325 PO; +TERB250T51 PO
[2019-08-06] MEDS ORDERED: ZOSYN 3.375GM+NS 50ML 50 ML IV ONE (13:55)
[2019-08-06] MEDS ORDERED: ACETAMINOPHEN 650 MG SUPPOSITORY RC ONE ×2 (13:56→23:58)
[2019-08-06] MEDS ORDERED: ACETAMINOPHEN EXTRA STRENGTH 500 MG TABLET ONE (13:58)
[2019-08-06 14:41] LABS: APPEARANCE,URINE SL CLOUDY (CLEAR); BILIRUBIN,URINE NEGATIVE (NEGATIVE); COLOR,URINE YELLOW (YELLOW); GLUCOSE, URINE (UA) NEGATIVE (NEGATIVE); KETONES,URINE 5 mg/dL (NEGATIVE); LEUKOCYTE ESTERASE ,URINE NEGATIVE (NEGATIVE); NITRATE,URINE NEGATIVE (NEGATIVE); OCCULT BLOOD,URINE LARGE (NEGATIVE); PROTEIN,URINE 100 mg/dL (NEGATIVE); UROBILINOGEN,URINE 0.2 mg/dL (0.2-1.0)
[2019-08-06 14:41] LABS: BASOPHILS % (AUTO) 0.2 % (0.0-5.0); EOSINOPHILS % (AUTO) 0.4 % (0.0-8.0); LYMPHOCYTES % (AUTO) 3.7 % (21.0-51.0); MEAN CORPUSCULAR HEMOGLOBIN 25.9 pg (27.0-33.0); MEAN CORPUSCULAR HGB CONC 31.4 g/dL (32.0-36.0); MEAN CORPUSCULAR VOLUME 82.4 fL (79-99); MONOCYTES % (AUTO) 5.5 % (3.0-13.0); NEUTROPHILS % (AUTO) 88.5 % (40.0-77.0); NUCLEATED RED BLOOD CELLS 0.1 % (0.0-0.19); PLATELET COUNT (AUTO) 304 K/uL (130-400); RED CELL DISTRIBUTION WIDTH 18.5 % (11.0-15.5); WHITE BLOOD COUNT (AUTO) 20.9 K/uL (4.8-10.8)
[2019-08-06 14:49] LABS: CREATININE 2.5 mg/dL (0.5-1.5); POTASSIUM 4.5 mmol/L (3.5-5.1)
[2019-08-06 14:54] LABS: INR 1.03 (0.85-1.15); PARTIAL THROMBOPLASTIN TIME 29.6 SEC (26.3-35.5); PROTHROMBIN TIME 11.1 SEC (9.6-11.6)
[2019-08-06 14:59] LABS: BACTERIA,URINE Few /HPF (None Seen); RBC,URINE 0-1 /HPF (0-1); SQUAMOUS EPITHELIAL CELL,UR Few /HPF (0-2)
[2019-08-06 15:00] LABS: MUCUS,URINE Few LPF (None Seen)
[2019-08-06 15:01] LABS: COARSE GRANULAR CASTS,URINE 0-2 /LPF (None Seen)
[2019-08-06 15:16] LABS: ALBUMIN 3.1 g/dL (3.5-5.0); BILIRUBIN,TOTAL 0.3 mg/dL (0.2-1.0); TOTAL PROTEIN, SERUM 6.6 g/dL (6.0-8.3); TROPONIN I 0.14 ng/mL (0.00-0.06)
[2019-08-06] MEDS ORDERED: VANCOMYCIN 1GM+NS 250ML 250 ML IV SCH (16:15)
[2019-08-06] MEDS ORDERED: VANCOMYCIN PROTOCOL PER PHARMACY IV PRN (16:15)
[2019-08-06] MEDS ORDERED: HYDRALAZINE HCL 20 MG/ML VIAL IV PRN (16:15)
[2019-08-06] MEDS ORDERED: LACTULOSE 20 GM/30 ML UDCUP PO PRN (16:15)
[2019-08-06] MEDS ORDERED: ONDANSETRON HCL 4 MG/2 ML VIAL IV PRN (16:15)
[2019-08-06] MEDS ORDERED: CEFAZOLIN SODIUM 1 GM VIAL IVP SCH ×2 (16:15→19:00)
[2019-08-06] MEDS ORDERED: VANCOMYCIN 1GM+NS 250ML 250 ML IV ONE (16:52)
[2019-08-06] MEDS ORDERED: ENOXAPARIN SODIUM 30 MG/0.3 ML SQ ONE (16:52)
[2019-08-06 17:00] LABS: CRP QUANTITATIVE 138.2 mg/L (0.00-9.0); MAGNESIUM 1.5 mg/dL (1.80-2.40)
[2019-08-06] MEDS ORDERED: COMPOUND IV REFRIGERATED 1 EACH IVSOLN MISC PRN (18:00)
[2019-08-06] MEDS: CEFAZOLIN SODIUM 1 GM VIAL IVP SCH (20:00)
[2019-08-06] MEDS: FAMOTIDINE/PF 20 MG/2 ML VIAL IV SCH (21:00)
[2019-08-06 21:59] LABS: MYOGLOBIN 6814 ng/mL (10-92)
[2019-08-06 22:03] LABS: CREATINE KINASE, TOTAL 5659 U/L (21-232)
[2019-08-06 22:30] VITALS: BP 128/53
--- NOTE | 2019-08-06 22:50 | NUR ---
Patient transferred from ED. Patient able to state name, age, and 's name. Cannot answer , location, or pain. Does appear in distress. Currently using 2l of 02 via Nasal Canula. Generalized 2+pitting edema to body. Blisters and redness to RLE. Weeping RLE. Patient does have a fever. Unable to follow commands or swallow. Will get order for suppository Tylenol. Unable to do complete admission assessment since patient cannot respond accordingly. Will have day nurse contact during day.
[2019-08-06] MEDS ORDERED: ACETAMINOPHEN 650 MG SUPPOSITORY RC PRN (23:45)
[2019-08-07] VITALS (7 sets, daily range): BP systolic 150–196; BP diastolic 63–85
[2019-08-07 03:45] LABS: BASOPHILS % (AUTO) 0.2 % (0.0-5.0); EOSINOPHILS % (AUTO) 0.2 % (0.0-8.0); HEMATOCRIT 27.6 % (42-54); LYMPHOCYTES % (AUTO) 5.5 % (21.0-51.0); MEAN CORPUSCULAR HEMOGLOBIN 25.5 pg (27.0-33.0); MEAN CORPUSCULAR HGB CONC 30.4 g/dL (32.0-36.0); MEAN CORPUSCULAR VOLUME 83.6 fL (79-99); MONOCYTES % (AUTO) 6.9 % (3.0-13.0); PLATELET COUNT (AUTO) 221 K/uL (130-400); RED CELL DISTRIBUTION WIDTH 18.4 % (11.0-15.5); WHITE BLOOD COUNT (AUTO) 16.3 K/uL (4.8-10.8)
[2019-08-07 04:03] LABS: B-TYPE NATRIURETIC PEPTIDE 1350 pg/mL (0-100)
[2019-08-07] MEDS: SODIUM CHLORIDE 0.9% 1000ML 1,000 ML IV SCH ×3 (04:07→22:23)
[2019-08-07 04:13] LABS: CREATININE 2.2 mg/dL (0.5-1.5); POTASSIUM 4.2 mmol/L (3.5-5.1)
[2019-08-07 04:44] LABS: ERYTHROCYTE SEDIMENTATION RATE 50 MM/HR (0-20)
[2019-08-07 05:06] LABS: CRP QUANTITATIVE 319.7 mg/L (0.00-9.0)
[2019-08-07] MEDS: CEFAZOLIN SODIUM 1 GM VIAL IVP SCH ×2 (08:37→21:07)
[2019-08-07] MEDS: FAMOTIDINE/PF 20 MG/2 ML VIAL IV SCH ×2 (08:38→21:08)
[2019-08-07] MEDS: ENOXAPARIN SODIUM 30 MG/0.3 ML SQ SCH (08:39)
[2019-08-07] MEDS: VANCOMYCIN 0.75 GM in SODIUM CHLORIDE 0.9% 250 ML IV SCH (09:14)
--- NOTE | 2019-08-07 09:22 | NUR ---
CM NOTE/IA MEET WITH PATIENT IN ROOM. PER PATIENT IS INDEPENDENT WITH ADLS, LIVES WITH SPOUSE WHO ASSISTS HIM IF NEEDED, HAS ROLLATOR WALKER, STANDARD WALKER, WC, NEBULIZER, O2, CPAP, AND SHOWER CHAIR, NO PROVIDERS OR HOME HEALTH IN USE, AND FEELS SAFE TO RETURN HOME. DCP HOME WHEN MEDICALLY CLEARED AND STABLE. Addendum: 08/08/19 at 0924 by SAIGE AGUERO RN CM Amended: Links added.
[2019-08-07 10:02] LABS: MYOGLOBIN 1989 ng/mL (10-92)
[2019-08-07 10:05] LABS: CREATINE KINASE, TOTAL 3677 U/L (21-232)
[2019-08-07] MEDS ORDERED: LABETALOL 20 MG/4 ML DISP.SYRIN IV PRN (11:30)
[2019-08-07] MEDS ORDERED: INSU100V12 SQ (11:32)
[2019-08-07] MEDS ORDERED: LABETALOL 20 MG/4 ML DISP.SYRIN IV ONE (11:36)
[2019-08-07 14:26] LABS: MYOGLOBIN 1279 ng/mL (10-92)
[2019-08-07 14:28] LABS: CREATINE KINASE, TOTAL 2827 U/L (21-232)
[2019-08-07] MEDS ORDERED: TAMS-1 PO (15:44)
[2019-08-07] MEDS ORDERED: FERR325T21 PO (15:44)
[2019-08-07] MEDS ORDERED: METF750T46 PO (15:46)
[2019-08-07] MEDS ORDERED: DEXTROSE 50%-WATER 50 ML DISP.SYRIN IV PRN (16:00)
[2019-08-07] MEDS ORDERED: DOCUSATE SODIUM 100 MG CAP PO PRN (16:00)
[2019-08-07] MEDS ORDERED: GLUCAGON 1MG KIT 1 MG ML IM PRN (16:00)
[2019-08-07] MEDS ORDERED: VANCOMYCIN 750MG + NS 250 ML IV SCH ×2 (16:00)
[2019-08-07] MEDS: INSULIN HUMULIN R 100 UNIT/ML 3ML SQ SCH ×2 (16:30→22:06)
[2019-08-07] MEDS: HYDRALAZINE HCL 25 MG TABLET PO SCH (21:07)
[2019-08-07] MEDS: TAMSULOSIN HCL 0.4 MG CAP.ER.24H PO SCH (21:07)
[2019-08-07] MEDS: GABAPENTIN 300 MG CAPSULE PO SCH (21:07)
[2019-08-07] MEDS: SUCRALFATE 1 GM TABLET PO SCH (21:08)
[2019-08-07] MEDS: FERROUS GLUCONATE 325 MG TABLET PO SCH (21:08)
[2019-08-07] MEDS: CARVEDILOL 3.125 MG TABLET PO SCH (21:08)
[2019-08-07] MEDS: BUMETANIDE 0.25 MG/ML 10 ML VIAL IVP SCH (21:09)
[2019-08-07 21:39] LABS: MYOGLOBIN 868 ng/mL (10-92)
[2019-08-07 22:04] LABS: CREATINE KINASE, TOTAL 1937 U/L (21-232)
[2019-08-07] MEDS: INSULIN GLARGINE 100 UNITS/ML 10 ML VIAL SQ SCH (22:07)
[2019-08-08 03:18] VITALS: BP 139/65
[2019-08-08 04:34] LABS: BASOPHILS % (AUTO) 0.2 % (0.0-5.0); EOSINOPHILS % (AUTO) 0.1 % (0.0-8.0); HEMATOCRIT 26.1 % (42-54); LYMPHOCYTES % (AUTO) 5.8 % (21.0-51.0); MEAN CORPUSCULAR HEMOGLOBIN 25.2 pg (27.0-33.0); MEAN CORPUSCULAR HGB CONC 30.3 g/dL (32.0-36.0); MEAN CORPUSCULAR VOLUME 83.1 fL (79-99); MONOCYTES % (AUTO) 6.3 % (3.0-13.0); NEUTROPHILS % (AUTO) 84.4 % (40.0-77.0); PLATELET COUNT (AUTO) 242 K/uL (130-400); RED BLOOD CELL COUNT(AUTO) 3.14 MIL/uL (4.50-6.20); RED CELL DISTRIBUTION WIDTH 18.4 % (11.0-15.5); WHITE BLOOD COUNT (AUTO) 14.5 K/uL (4.8-10.8)
[2019-08-08 04:57] LABS: ALBUMIN 2.2 g/dL (3.5-5.0); BILIRUBIN,TOTAL 0.3 mg/dL (0.2-1.0); CREATININE 1.6 mg/dL (0.5-1.5); POTASSIUM 4.2 mmol/L (3.5-5.1); TOTAL PROTEIN, SERUM 5.8 g/dL (6.0-8.3)
[2019-08-08] MEDS: INSULIN HUMULIN R 100 UNIT/ML 3ML SQ SCH ×4 (07:30→21:00)
[2019-08-08 08:17] VITALS: BP 172/70
[2019-08-08] MEDS: SODIUM CHLORIDE 0.9% 1000ML 1,000 ML IV SCH ×2 (08:23→18:23)
[2019-08-08] MEDS: ACETAMINOPHEN 325 MG TAB PO PRN (08:54)
[2019-08-08] MEDS: **HM**(Terbinafine HCl 250 MG PO SCH (09:00)
[2019-08-08] MEDS: **HM**Cholecalciferol (Vitamin D3) (Vitamin D3) 1,000 UNIT PO SCH (09:00)
[2019-08-08 09:28] LABS: MYOGLOBIN 447 ng/mL (10-92)
[2019-08-08 09:32] LABS: CREATINE KINASE, TOTAL 1170 U/L (21-232)
[2019-08-08] MEDS: GABAPENTIN 300 MG CAPSULE PO SCH ×3 (10:11→22:02)
[2019-08-08] MEDS: FERROUS GLUCONATE 325 MG TABLET PO SCH ×3 (10:12→22:03)
[2019-08-08] MEDS: CARVEDILOL 3.125 MG TABLET PO SCH ×2 (10:12→22:07)
[2019-08-08] MEDS: MAGNESIUM OXIDE 400 MG TABLET PO SCH (10:12)
[2019-08-08] MEDS: FAMOTIDINE/PF 20 MG/2 ML VIAL IV SCH ×2 (10:12→22:01)
[2019-08-08] MEDS: SUCRALFATE 1 GM TABLET PO SCH ×3 (10:12→22:03)
[2019-08-08] MEDS: HYDRALAZINE HCL 25 MG TABLET PO SCH ×3 (10:12→22:04)
[2019-08-08] MEDS: VITAMIN E 400 UNIT CAPSULE PO SCH (10:12)
[2019-08-08] MEDS: VANCOMYCIN 0.75 GM in SODIUM CHLORIDE 0.9% 250 ML IV SCH (10:13)
[2019-08-08] MEDS: CEFAZOLIN SODIUM 1 GM VIAL IVP SCH ×2 (10:13→20:00)
[2019-08-08] MEDS: BUMETANIDE 0.25 MG/ML 10 ML VIAL IVP SCH ×2 (10:13→22:08)
[2019-08-08] MEDS: ENOXAPARIN SODIUM 30 MG/0.3 ML SQ SCH (10:14)
[2019-08-08 11:56] VITALS: BP 137/59
--- NOTE | 2019-08-08 12:39 | NUR ---
CM NOTE/[facility] REFERRAL MEET WITH PATIENT IN ROOM TO DISCUSS NEW ORDER FOR [facility]. PER PATIENT, AGREEABLE BUT WANTS ME TO CALL SPOUSE AND SPEAK TO HER REGARDING REFERRAL. CALLED, SIENNA MARTIN [phone], PER SPOUSE, AGREEABLE TO LTAC. [facility] FILLED FOR [facility]. CLINICAL PACKET FAXED AND CONFIRMED RECEIVED. KIRK FROM [facility] AWARE OF REFERRAL BY PHONE. PRIMARY NURSE, IRAIDA MENDIETA, MADE AWARE.
[2019-08-08 14:40] LABS: MYOGLOBIN 370 ng/mL (10-92)
[2019-08-08 14:47] LABS: CREATINE KINASE, TOTAL 856 U/L (21-232)
[2019-08-08 15:30] VITALS: BP 169/82
[2019-08-08 15:55] LABS: INR 0.93 (0.85-1.15); PROTHROMBIN TIME 10.1 SEC (9.6-11.6)
[2019-08-08 19:48] VITALS: BP 152/72
--- NOTE | 2019-08-08 20:45 | NUR ---
RIGHT ARM PICC SUCCESSFULLY INSERTED AT BRACHIAL VEIN, USING ASEPTIC TECHNIQUE. EKG ON FILE SHOWED SINUS RHYTHM, VPS ATTEMPTED, BUT UNABLE TO OBTAIN "BULLSEYE" PER VPS NAVIGATION. CHEST XRAY TAKEN AND RADIOLOGIST CONFIRMATION OF TIP PLACEMENT PENDING "TIP IN SVC" FOR OK TO USE. ANAM WALKER AWARE.
[2019-08-08] MEDS: INSULIN GLARGINE 100 UNITS/ML 10 ML VIAL SQ SCH (21:00)
[2019-08-08] MEDS: TAMSULOSIN HCL 0.4 MG CAP.ER.24H PO SCH (22:03)
[2019-08-08 23:38] VITALS: BP 178/79
[2019-08-09 04:00] VITALS: BP 180/77
[2019-08-09] MEDS: SODIUM CHLORIDE 0.9% 1000ML 1,000 ML IV SCH (05:17)
[2019-08-09 06:10] LABS: BASOPHILS % (AUTO) 0.4 % (0.0-5.0); EOSINOPHILS % (AUTO) 0.6 % (0.0-8.0); HEMATOCRIT 23.9 % (42-54); LYMPHOCYTES % (AUTO) 5.3 % (21.0-51.0); MEAN CORPUSCULAR HEMOGLOBIN 25.2 pg (27.0-33.0); MEAN CORPUSCULAR HGB CONC 30.5 g/dL (32.0-36.0); MEAN CORPUSCULAR VOLUME 82.4 fL (79-99); MONOCYTES % (AUTO) 5.1 % (3.0-13.0); NEUTROPHILS % (AUTO) 87.3 % (40.0-77.0); PLATELET COUNT (AUTO) 222 K/uL (130-400); WHITE BLOOD COUNT (AUTO) 14.1 K/uL (4.8-10.8)
[2019-08-09 06:25] LABS: BILIRUBIN,TOTAL 0.2 mg/dL (0.2-1.0); CREATININE 1.5 mg/dL (0.5-1.5); POTASSIUM 3.9 mmol/L (3.5-5.1); TOTAL PROTEIN, SERUM 5.7 g/dL (6.0-8.3)
[2019-08-09] MEDS: **HM**(Terbinafine HCl 250 MG PO SCH (09:00)
[2019-08-09] MEDS: **HM**Cholecalciferol (Vitamin D3) (Vitamin D3) 1,000 UNIT PO SCH (09:00)
--- NOTE | 2019-08-09 09:10 | NUR ---
DYSPHAGIA CHI COMPLETED. S/S OF ASPIRATION AT THIS TIME. RECOMMEND REGULAR SOLIDS, THIN LIQUIDS, AND PILLS WHOLE WITH LIQUIDS TOLERATED. PHYSICAL PLANT MANAGER EDUCATED Pt ON RISKS AND CONSEQUENCES OF ASPIRATION. ALL QUESTIONS ANSWERED AT THIS TIME. PHYSICAL PLANT MANAGER COORDINATED WITH NURSE KHOURY. Addendum: 08/09/[address] ROSANNE TURK Amended: Links added.
[2019-08-09 09:30] VITALS: BP 167/75
[2019-08-09] MEDS: BUMETANIDE 0.25 MG/ML 10 ML VIAL IVP SCH (09:45)
[2019-08-09] MEDS: FAMOTIDINE/PF 20 MG/2 ML VIAL IV SCH ×2 (09:45→21:37)
[2019-08-09] MEDS: VANCOMYCIN 0.75 GM in SODIUM CHLORIDE 0.9% 250 ML IV SCH (09:45)
[2019-08-09] MEDS: CEFAZOLIN SODIUM 1 GM VIAL IVP SCH (09:46)
[2019-08-09] MEDS: GABAPENTIN 300 MG CAPSULE PO SCH ×3 (09:46→21:38)
[2019-08-09] MEDS: SUCRALFATE 1 GM TABLET PO SCH ×3 (09:46→21:37)
[2019-08-09] MEDS: FERROUS GLUCONATE 325 MG TABLET PO SCH ×3 (09:47→21:38)
[2019-08-09] MEDS: VITAMIN E 400 UNIT CAPSULE PO SCH (09:47)
[2019-08-09] MEDS: MAGNESIUM OXIDE 400 MG TABLET PO SCH (09:47)
[2019-08-09] MEDS: ACETAMINOPHEN 325 MG TAB PO PRN ×2 (09:47→17:20)
[2019-08-09] MEDS: HYDRALAZINE HCL 25 MG TABLET PO SCH ×3 (09:47→21:37)
[2019-08-09] MEDS: CARVEDILOL 3.125 MG TABLET PO SCH ×2 (09:48→21:39)
[2019-08-09] MEDS: POLYETHYLENE GLYCOL 3350 17 GM POWD.PACK PO SCH (09:48)
[2019-08-09] MEDS: ENOXAPARIN SODIUM 30 MG/0.3 ML SQ SCH (09:49)
[2019-08-09] MEDS: INSULIN HUMULIN R 100 UNIT/ML 3ML SQ SCH ×4 (10:02→20:29)
[2019-08-09 11:52] VITALS: BP 164/80
[2019-08-09] MEDS ORDERED: BUMETANIDE 0.25 MG/ML 10 ML VIAL IV SCH (14:15)
[2019-08-09] MEDS ORDERED: BUMETANIDE 0.25MG/ML 40ML IV SCH (14:45)
[2019-08-09] MEDS: BUMETANIDE 0.25 MG/ML 10 ML 80 ML IV SCH (15:15)
[2019-08-09 16:13] VITALS: BP 162/70
--- NOTE | 2019-08-09 16:32 | NUR ---
[facility] CONSULT PATIENT ASSESSED REQUESTED: [facility] RECOMMENDATIONS SUBMITTED; REPORT GIVEN TO PATIENT'S NURSE. Addendum: 08/09/19 at 1633 by BRITTNEY OSBORN LVN Amended: Links added.
[2019-08-09] MEDS: INSULIN LISPRO 100 UNIT/ML 3ML SQ SCH (17:13)
[2019-08-09] MEDS ORDERED: SODIUM CHLORIDE 0.9% 250 ML IV ONE (17:45)
[2019-08-09 19:58] VITALS: BP 156/62
[2019-08-09] MEDS: INSULIN GLARGINE 100 UNITS/ML 10 ML VIAL SQ SCH (20:29)
[2019-08-09 20:55] VITALS: BP 153/68
[2019-08-09] MEDS: TAMSULOSIN HCL 0.4 MG CAP.ER.24H PO SCH (21:37)
[2019-08-10] VITALS (7 sets, daily range): BP systolic 104–157; BP diastolic 44–82
[2019-08-10] MEDS: ACETAMINOPHEN 325 MG TAB PO PRN ×2 (00:37→05:45)
[2019-08-10] MEDS: CEFAZOLIN SODIUM 1 GM VIAL IVP SCH ×3 (00:38→22:57)
[2019-08-10 04:32] LABS: BASOPHILS % (AUTO) 0.4 % (0.0-5.0); HEMATOCRIT 29.3 % (42-54); LYMPHOCYTES % (AUTO) 6.2 % (21.0-51.0); MEAN CORPUSCULAR HEMOGLOBIN 25.7 pg (27.0-33.0); MEAN CORPUSCULAR HGB CONC 31.7 g/dL (32.0-36.0); MEAN CORPUSCULAR VOLUME 80.9 fL (79-99); MONOCYTES % (AUTO) 6.5 % (3.0-13.0); NEUTROPHILS % (AUTO) 85.1 % (40.0-77.0); PLATELET COUNT (AUTO) 266 K/uL (130-400); RED BLOOD CELL COUNT(AUTO) 3.62 MIL/uL (4.50-6.20); RED CELL DISTRIBUTION WIDTH 16.9 % (11.0-15.5); WHITE BLOOD COUNT (AUTO) 13.3 K/uL (4.8-10.8)
[2019-08-10 05:00] LABS: B-TYPE NATRIURETIC PEPTIDE 540 pg/mL (0-100)
[2019-08-10 05:10] LABS: ALBUMIN 2.1 g/dL (3.5-5.0); BILIRUBIN,TOTAL 0.3 mg/dL (0.2-1.0); CREATININE 1.5 mg/dL (0.5-1.5); MAGNESIUM 1.4 mg/dL (1.80-2.40); PHOSPHORUS 3.2 mg/dL (2.5-4.9); POTASSIUM 3.6 mmol/L (3.5-5.1); TOTAL PROTEIN, SERUM 6.2 g/dL (6.0-8.3)
[2019-08-10] MEDS: INSULIN HUMULIN R 100 UNIT/ML 3ML SQ SCH ×4 (06:50→21:00)
[2019-08-10] MEDS: **HM**(Terbinafine HCl 250 MG PO SCH (07:33)
[2019-08-10] MEDS: **HM**Cholecalciferol (Vitamin D3) (Vitamin D3) 1,000 UNIT PO SCH (07:33)
[2019-08-10] MEDS: BUMETANIDE 0.25 MG/ML 10 ML 80 ML IV SCH (08:02)
[2019-08-10] MEDS: AMLODIPINE BESYLATE 5 MG TAB PO SCH (08:58)
[2019-08-10] MEDS: VITAMIN E 400 UNIT CAPSULE PO SCH (08:58)
[2019-08-10] MEDS: FERROUS GLUCONATE 325 MG TABLET PO SCH ×3 (08:59→23:02)
[2019-08-10] MEDS: HYDRALAZINE HCL 25 MG TABLET PO SCH ×3 (08:59→21:00)
[2019-08-10] MEDS: GABAPENTIN 300 MG CAPSULE PO SCH ×3 (08:59→23:03)
[2019-08-10] MEDS: MAGNESIUM OXIDE 400 MG TABLET PO SCH (08:59)
[2019-08-10] MEDS: SUCRALFATE 1 GM TABLET PO SCH ×3 (08:59→23:02)
[2019-08-10] MEDS: CARVEDILOL 3.125 MG TABLET PO SCH ×2 (09:00→23:03)
[2019-08-10] MEDS: POLYETHYLENE GLYCOL 3350 17 GM POWD.PACK PO SCH (09:00)
[2019-08-10] MEDS: FAMOTIDINE/PF 20 MG/2 ML VIAL IV SCH ×2 (09:00→22:57)
[2019-08-10] MEDS: VANCOMYCIN 1GM+NS 250ML 250 ML IV SCH (09:00)
[2019-08-10] MEDS: ENOXAPARIN SODIUM 30 MG/0.3 ML SQ SCH (09:05)
--- NOTE | 2019-08-10 09:53 | NUR ---
FOLLOW UP COMPLETED PIPE LINE WALKER COORDINATED WITH NURSE SMALL. Pt CURRENTLY TOLERATING DIET RECOMMENDATION WITH NO S/S OF ASPIRATION. CONTINUE PLAN OF CARE TOLERATED. Addendum: 08/10/[address] ROSANNE TURK Amended: Links added.
--- NOTE | 2019-08-10 10:00 | NUR ---
CM NOTE faxed clinical update to [facility] . per Cait still no approval from [facility].
[2019-08-10] MEDS: INSULIN LISPRO 100 UNIT/ML 3ML SQ SCH ×2 (12:00→16:51)
[2019-08-10] MEDS: HONEY 1 APPL/ML TUBE TP SCH (14:09)
--- NOTE | 2019-08-10 14:16 | NUR ---
DR. CHOUDHARY IN ROOM ASSESSING/SPEAKING WITH PT. RE:PLAN OF CARE. QUESTIONS ANSWERED BY DR. CHOUDHARY.
--- NOTE | 2019-08-10 15:28 | NUR ---
cm note spoke to ranjana from [facility] for update and states that [place] has called her and is requesting [facility] CM . faxed clinical PT Notes to reva with [facility], and updated her on this request from them, states pt is still pending approval. no auth yet.
[2019-08-10] MEDS: INSULIN GLARGINE 100 UNITS/ML 10 ML VIAL SQ SCH (22:58)
[2019-08-10] MEDS: TAMSULOSIN HCL 0.4 MG CAP.ER.24H PO SCH (23:02)
[2019-08-11 03:39] VITALS: BP 103/45
[2019-08-11] MEDS: BUMETANIDE 0.25 MG/ML 10 ML 80 ML IV SCH (07:25)
[2019-08-11] MEDS: INSULIN HUMULIN R 100 UNIT/ML 3ML SQ SCH ×4 (07:28→21:00)
[2019-08-11] MEDS: INSULIN LISPRO 100 UNIT/ML 3ML SQ SCH ×3 (07:29→18:00)
[2019-08-11] MEDS: **HM**Cholecalciferol (Vitamin D3) (Vitamin D3) 1,000 UNIT PO SCH (07:58)
[2019-08-11] MEDS: **HM**(Terbinafine HCl 250 MG PO SCH (07:58)
[2019-08-11 08:00] VITALS: BP 155/69
[2019-08-11] MEDS: FAMOTIDINE/PF 20 MG/2 ML VIAL IV SCH ×2 (08:37→21:35)
[2019-08-11] MEDS: CEFAZOLIN SODIUM 1 GM VIAL IVP SCH ×2 (08:39→21:35)
[2019-08-11] MEDS: SUCRALFATE 1 GM TABLET PO SCH ×3 (08:42→21:36)
[2019-08-11] MEDS: GABAPENTIN 300 MG CAPSULE PO SCH ×3 (08:42→21:36)
[2019-08-11] MEDS: HYDRALAZINE HCL 25 MG TABLET PO SCH ×3 (08:42→21:00)
[2019-08-11] MEDS: AMLODIPINE BESYLATE 5 MG TAB PO SCH (08:43)
[2019-08-11] MEDS: MAGNESIUM OXIDE 400 MG TABLET PO SCH (08:43)
[2019-08-11] MEDS: POLYETHYLENE GLYCOL 3350 17 GM POWD.PACK PO SCH (08:44)
[2019-08-11] MEDS: ENOXAPARIN SODIUM 30 MG/0.3 ML SQ SCH (08:44)
[2019-08-11] MEDS: FERROUS GLUCONATE 325 MG TABLET PO SCH ×3 (08:44→21:36)
[2019-08-11] MEDS: CARVEDILOL 3.125 MG TABLET PO SCH ×2 (08:44→21:00)
[2019-08-11] MEDS: VITAMIN E 400 UNIT CAPSULE PO SCH (08:45)
[2019-08-11] MEDS: VANCOMYCIN 1GM+NS 250ML 250 ML IV SCH (08:45)
[2019-08-11 11:16] VITALS: BP 172/70
[2019-08-11] MEDS: HONEY 1 APPL/ML TUBE TP SCH (13:06)
[2019-08-11 16:00] VITALS: BP 148/71
[2019-08-11 19:00] VITALS: BP 107/47
[2019-08-11] MEDS: TAMSULOSIN HCL 0.4 MG CAP.ER.24H PO SCH (21:36)
[2019-08-11] MEDS: INSULIN GLARGINE 100 UNITS/ML 10 ML VIAL SQ SCH (21:40)
[2019-08-11 23:00] VITALS: BP 116/43
[2019-08-12 03:00] VITALS: BP 114/48
[2019-08-12 05:10] LABS: BASOPHILS % (AUTO) 0.2 % (0.0-5.0); EOSINOPHILS % (AUTO) 0.3 % (0.0-8.0); HEMATOCRIT 30.1 % (42-54); LYMPHOCYTES % (AUTO) 7.6 % (21.0-51.0); MEAN CORPUSCULAR HEMOGLOBIN 25.9 pg (27.0-33.0); MEAN CORPUSCULAR HGB CONC 31.6 g/dL (32.0-36.0); MONOCYTES % (AUTO) 7.4 % (3.0-13.0); NEUTROPHILS % (AUTO) 82.7 % (40.0-77.0); PLATELET COUNT (AUTO) 378 K/uL (130-400); RED BLOOD CELL COUNT(AUTO) 3.67 MIL/uL (4.50-6.20); RED CELL DISTRIBUTION WIDTH 17.3 % (11.0-15.5); WHITE BLOOD COUNT (AUTO) 15.1 K/uL (4.8-10.8)
[2019-08-12] MEDS: INSULIN HUMULIN R 100 UNIT/ML 3ML SQ SCH ×4 (06:25→21:00)
[2019-08-12] MEDS: INSULIN LISPRO 100 UNIT/ML 3ML SQ SCH ×3 (06:29→17:00)
[2019-08-12 06:36] LABS: CREATININE 1.8 mg/dL (0.5-1.5); POTASSIUM 3.2 mmol/L (3.5-5.1)
[2019-08-12] MEDS: BUMETANIDE 0.25 MG/ML 10 ML 80 ML IV SCH (07:47)
[2019-08-12 07:51] VITALS: BP 146/61
[2019-08-12] MEDS: **HM**Cholecalciferol (Vitamin D3) (Vitamin D3) 1,000 UNIT PO SCH (07:57)
[2019-08-12] MEDS: **HM**(Terbinafine HCl 250 MG PO SCH (07:57)
[2019-08-12] MEDS: POLYETHYLENE GLYCOL 3350 17 GM POWD.PACK PO SCH (08:05)
[2019-08-12] MEDS: VANCOMYCIN 1GM+NS 250ML 250 ML IV SCH (08:06)
[2019-08-12] MEDS: CARVEDILOL 3.125 MG TABLET PO SCH ×2 (08:09→21:00)
[2019-08-12] MEDS: VITAMIN E 400 UNIT CAPSULE PO SCH (08:10)
[2019-08-12] MEDS: HYDRALAZINE HCL 25 MG TABLET PO SCH ×3 (08:10→21:00)
[2019-08-12] MEDS: MAGNESIUM OXIDE 400 MG TABLET PO SCH (08:10)
[2019-08-12] MEDS: AMLODIPINE BESYLATE 5 MG TAB PO SCH (08:11)
[2019-08-12] MEDS: GABAPENTIN 300 MG CAPSULE PO SCH ×3 (08:11→21:00)
[2019-08-12] MEDS: SUCRALFATE 1 GM TABLET PO SCH ×3 (08:11→21:00)
[2019-08-12] MEDS: FERROUS GLUCONATE 325 MG TABLET PO SCH ×3 (08:11→21:00)
[2019-08-12] MEDS: FAMOTIDINE/PF 20 MG/2 ML VIAL IV SCH ×2 (08:12→21:00)
[2019-08-12] MEDS: CEFAZOLIN SODIUM 1 GM VIAL IVP SCH ×2 (08:12→20:00)
[2019-08-12] MEDS: ENOXAPARIN SODIUM 30 MG/0.3 ML SQ SCH (08:13)
[2019-08-12 12:00] VITALS: BP 157/66
[2019-08-12] MEDS: HONEY 1 APPL/ML TUBE TP SCH (13:42)
[2019-08-12] MEDS: SODIUM CHLORIDE 0.9% 1000ML 1,000 ML IV SCH (15:45)
[2019-08-12 16:00] VITALS: BP 120/80
[2019-08-12 20:14] VITALS: BP 141/65
[2019-08-12] MEDS: INSULIN GLARGINE 100 UNITS/ML 10 ML VIAL SQ SCH (21:00)
[2019-08-12] MEDS: TAMSULOSIN HCL 0.4 MG CAP.ER.24H PO SCH (21:00)
[2019-08-12 23:49] VITALS: BP 147/60
[2019-08-13 04:18] VITALS: BP 122/71
[2019-08-13] MEDS: ACETAMINOPHEN 325 MG TAB PO PRN (05:30)
[2019-08-13 05:47] LABS: BASOPHILS % (AUTO) 0.2 % (0.0-5.0); EOSINOPHILS % (AUTO) 0.3 % (0.0-8.0); HEMATOCRIT 29.8 % (42-54); MEAN CORPUSCULAR HEMOGLOBIN 25.9 pg (27.0-33.0); MEAN CORPUSCULAR HGB CONC 31.5 g/dL (32.0-36.0); MEAN CORPUSCULAR VOLUME 82.1 fL (79-99); MONOCYTES % (AUTO) 6.9 % (3.0-13.0); NEUTROPHILS % (AUTO) 84.2 % (40.0-77.0); PLATELET COUNT (AUTO) 425 K/uL (130-400); RED BLOOD CELL COUNT(AUTO) 3.63 MIL/uL (4.50-6.20); RED CELL DISTRIBUTION WIDTH 17.7 % (11.0-15.5); WHITE BLOOD COUNT (AUTO) 13.2 K/uL (4.8-10.8)
[2019-08-13 06:04] LABS: CREATININE 1.8 mg/dL (0.5-1.5)
[2019-08-13] MEDS ORDERED: LIDOCAINE HCL-MPF 1% 2ML VIAL IV PRN (06:30)
[2019-08-13] MEDS: POTASSIUM CHLORIDE 10MEQ/100ML 100 ML IV PRN ×3 (06:52→17:55)
[2019-08-13 07:00] VITALS: BP 135/63
[2019-08-13] MEDS: INSULIN HUMULIN R 100 UNIT/ML 3ML SQ SCH ×4 (07:30→20:51)
[2019-08-13] MEDS: **HM**(Terbinafine HCl 250 MG PO SCH (09:00)
[2019-08-13] MEDS: VANCOMYCIN 1GM+NS 250ML 250 ML IV SCH (09:00)
[2019-08-13] MEDS: **HM**Cholecalciferol (Vitamin D3) (Vitamin D3) 1,000 UNIT PO SCH (09:00)
[2019-08-13] MEDS: INSULIN LISPRO 100 UNIT/ML 3ML SQ SCH ×3 (09:02→17:41)
[2019-08-13] MEDS: CARVEDILOL 3.125 MG TABLET PO SCH (09:03)
[2019-08-13] MEDS: MAGNESIUM OXIDE 400 MG TABLET PO SCH (09:03)
[2019-08-13] MEDS: SUCRALFATE 1 GM TABLET PO SCH ×3 (09:03→21:14)
[2019-08-13] MEDS: AMLODIPINE BESYLATE 5 MG TAB PO SCH (09:03)
[2019-08-13] MEDS: GABAPENTIN 300 MG CAPSULE PO SCH ×3 (09:04→21:15)
[2019-08-13] MEDS: CEFAZOLIN SODIUM 1 GM VIAL IVP SCH ×2 (09:05→21:14)
[2019-08-13] MEDS: FAMOTIDINE/PF 20 MG/2 ML VIAL IV SCH ×2 (09:05→21:18)
[2019-08-13] MEDS: FERROUS GLUCONATE 325 MG TABLET PO SCH ×3 (09:06→21:15)
[2019-08-13] MEDS: HYDRALAZINE HCL 25 MG TABLET PO SCH ×3 (09:08→21:16)
[2019-08-13] MEDS: POLYETHYLENE GLYCOL 3350 17 GM POWD.PACK PO SCH (09:08)
[2019-08-13] MEDS: VITAMIN E 400 UNIT CAPSULE PO SCH (09:09)
[2019-08-13] MEDS: ENOXAPARIN SODIUM 30 MG/0.3 ML SQ SCH (09:09)
--- NOTE | 2019-08-13 10:36 | NUR ---
RDSCREEN - LOS X 7 Pt admitted with Sepsis d/t Cellulitis as per EMR. Pt with poor PO intake (25%) d/t decreased appetite. Pt with BLE/BUE 2+ pitting edema. Right Lower Leg/Calf ulcer. Altered renal lab values. Pt pending discharge. 1) Recommend Renal Non Dialysis diet modification 2) Recommend Nepro QD 3) Recommend Karan BID, 500mg Vitamin C (QD), 220mg ZnSO4(QD), for wound healing support. RD to continue to monitor. Please notify as additional nutrition concerns arise. Thank you. Addendum: 08/13/19 at [address] Amended: Links added.
[2019-08-13 11:00] VITALS: BP 138/64
[2019-08-13] MEDS: SODIUM CHLORIDE 0.9% 1000ML 1,000 ML IV SCH (11:45)
[2019-08-13] MEDS: HONEY 1 APPL/ML TUBE TP SCH (13:10)
--- NOTE | 2019-08-13 13:57 | NUR ---
RADAMES Note: Caity pending [facility] approval CM spoke to Cait holm/Caity Doe, updated clinicals received, pt pending [facility] approval at this time. MOT semi-filled will completed once pt approved. EMS faxed and arranged for today, primary nurse to call [facility] once pt ready to DC. Primary nurse aware. CM to cont to follow up.
--- NOTE | 2019-08-13 15:00 | NUR ---
CM Note: [facility] denial CM spoke to Cait w/[facility], pt has denial. Per Cait unable to do peer to peer w/VA. Cait called spouse made aware of denial, per spouse pt has Medicare PPO plan, as per Cait as deductable of $300. Spouse unable to pay deductable, was upset and told Cait she will call [facility] today to appeal. Spouse to call [facility]. Primary nurse aware. CM to cont to follow up. CM called spouse left voicemail. Pending spouse to return call. CM to cont to follow up.
--- NOTE | 2019-08-13 15:45 | NUR ---
[facility] CONSULT PATIENT WAS SEEN AND [facility] RECOMMENDATIONS SUBMITTED ON 08/09/19; PER PATIENT'S NURSE ALAINA, NO NEW WOUNDS PRESENT. Addendum: 08/14/19 at 0757 by BRITTNEY OSBORN LVN Amended: Links added.
[2019-08-13 16:00] VITALS: BP 159/62
[2019-08-13 19:16] VITALS: BP 140/61
[2019-08-13] MEDS: INSULIN GLARGINE 100 UNITS/ML 10 ML VIAL SQ SCH (20:51)
[2019-08-13] MEDS: BUMETANIDE 1 MG TAB PO SCH (21:14)
[2019-08-13] MEDS: CARVEDILOL 6.25 MG TABLET PO SCH (21:15)
[2019-08-13] MEDS: TAMSULOSIN HCL 0.4 MG CAP.ER.24H PO SCH (21:16)
[2019-08-13 23:56] VITALS: BP 143/59
[2019-08-14 04:17] VITALS: BP 149/59
[2019-08-14 06:00] LABS: BASOPHILS % (AUTO) 0.4 % (0.0-5.0); EOSINOPHILS % (AUTO) 0.6 % (0.0-8.0); HEMATOCRIT 29.1 % (42-54); LYMPHOCYTES % (AUTO) 7.1 % (21.0-51.0); MEAN CORPUSCULAR HEMOGLOBIN 25.4 pg (27.0-33.0); MEAN CORPUSCULAR HGB CONC 30.9 g/dL (32.0-36.0); MONOCYTES % (AUTO) 6.3 % (3.0-13.0); NEUTROPHILS % (AUTO) 84.2 % (40.0-77.0); PLATELET COUNT (AUTO) 441 K/uL (130-400); RED BLOOD CELL COUNT(AUTO) 3.55 MIL/uL (4.50-6.20); RED CELL DISTRIBUTION WIDTH 17.4 % (11.0-15.5); WHITE BLOOD COUNT (AUTO) 11.2 K/uL (4.8-10.8)
[2019-08-14] MEDS: INSULIN LISPRO 100 UNIT/ML 3ML SQ SCH ×3 (06:12→15:42)
[2019-08-14] MEDS: INSULIN HUMULIN R 100 UNIT/ML 3ML SQ SCH ×4 (06:12→20:34)
[2019-08-14 06:33] LABS: CREATININE 1.7 mg/dL (0.5-1.5); POTASSIUM 3.5 mmol/L (3.5-5.1)
[2019-08-14 07:00] VITALS: BP 138/59
--- NOTE | 2019-08-14 08:00 | NUR ---
STATUS AAOX3 DENIES CP DENIES SOB. NO COMPLAINTS FOR THIS MORNING REFUSED BREAKFAST. AM MEDS GIVEN. SIDE RAILS UP X3. CALL LIGHT WITHIN REACH.
[2019-08-14] MEDS: VANCOMYCIN 1GM+NS 250ML 250 ML IV SCH (08:20)
[2019-08-14] MEDS: MAGNESIUM OXIDE 400 MG TABLET PO SCH (08:21)
[2019-08-14] MEDS: VITAMIN E 400 UNIT CAPSULE PO SCH (08:21)
[2019-08-14] MEDS: CEFAZOLIN SODIUM 1 GM VIAL IVP SCH ×2 (08:21→20:32)
[2019-08-14] MEDS: ENOXAPARIN SODIUM 30 MG/0.3 ML SQ SCH (08:21)
[2019-08-14] MEDS: HYDRALAZINE HCL 25 MG TABLET PO SCH ×3 (08:21→20:33)
[2019-08-14] MEDS: SUCRALFATE 1 GM TABLET PO SCH ×3 (08:21→20:33)
[2019-08-14] MEDS: FAMOTIDINE/PF 20 MG/2 ML VIAL IV SCH ×2 (08:22→20:33)
[2019-08-14] MEDS: FERROUS GLUCONATE 325 MG TABLET PO SCH ×3 (08:22→20:32)
[2019-08-14] MEDS: GABAPENTIN 300 MG CAPSULE PO SCH ×3 (08:22→20:33)
[2019-08-14] MEDS: AMLODIPINE BESYLATE 5 MG TAB PO SCH (08:22)
[2019-08-14] MEDS: BUMETANIDE 1 MG TAB PO SCH ×2 (08:24→20:32)
[2019-08-14] MEDS: **HM**(Terbinafine HCl 250 MG PO SCH (08:24)
[2019-08-14] MEDS: **HM**Cholecalciferol (Vitamin D3) (Vitamin D3) 1,000 UNIT PO SCH (08:24)
[2019-08-14] MEDS: POLYETHYLENE GLYCOL 3350 17 GM POWD.PACK PO SCH (08:24)
[2019-08-14] MEDS: CARVEDILOL 6.25 MG TABLET PO SCH ×2 (08:24→20:32)
--- NOTE | 2019-08-14 10:00 | NUR ---
CM Note: left voicemail to spouse CM called spouse, left voicemail. Pending spouse to return call. CM to cont to follow up.
[2019-08-14 11:00] VITALS: BP 138/59
--- NOTE | 2019-08-14 11:00 | NUR ---
CM Note: called VA CM called VA left voicemail for Katy . Awaiting call back. CM to cont to follow up.
[2019-08-14] MEDS: HONEY 1 APPL/ML TUBE TP SCH (11:10)
--- NOTE | 2019-08-14 11:11 | NUR ---
SCHEDULED INSULIN NOT GIVEN PATIENT DID NOT WANT TO EAT BREAKFAST. WILL WAIT TO SEE IF PATIENT WANTS TO EAT LUNCH.
--- NOTE | 2019-08-14 14:45 | NUR ---
CM Note: left voicemail to spouse CM called spouse, no return call from this morning. Left voicemail. Awaiting spouse to call back. CM to cont to follow up.
--- NOTE | 2019-08-14 14:54 | NUR ---
CM Note: spoke to spouse CM spoke to pt's spouse Syeda Griffith . Spouse aware of denial, verbalized she called [facility] already yesterday and made an appeal to escalate. Spouse verbalized she told [facility] pt cannot go to SNF, pt need higher level of care. Per spouse awaiting decision from [facility]. Spouse to call CM once decision made. CM called Cait holm/Caity, made aware spouse spoke to VA to escalate for appeal. Spouse to call CM once decision made. Made aware not to cancel referral. CM to cont to follow up.
--- NOTE | 2019-08-14 14:57 | NUR ---
CM Note: called VA CM called VA left voicemail to Katy. Awaiting call back. CM to cont to follow up.
[2019-08-14 16:00] VITALS: BP 142/56
--- NOTE | 2019-08-14 16:42 | NUR ---
CM Note: [facility] pending to approve re: reconsideration CM spoke to Katy holm/[facility], requested to have clinicals be sent again. MD will reconsider. As per Dr Hyman pt will need 3 wks abx iv. Faxed order and clinicals to [facility] and [facility], confirmation received. Spoke to Cait Falcon aware of POC. Pt pending approval at this time. Primary nurse aware. CM to cont to follow up.
[2019-08-14 19:38] VITALS: BP 137/57
[2019-08-14] MEDS: TAMSULOSIN HCL 0.4 MG CAP.ER.24H PO SCH (20:33)
[2019-08-14] MEDS: INSULIN GLARGINE 100 UNITS/ML 10 ML VIAL SQ SCH (20:34)
[2019-08-15] VITALS (7 sets, daily range): BP systolic 127–157; BP diastolic 52–69
[2019-08-15] MEDS: INSULIN LISPRO 100 UNIT/ML 3ML SQ SCH ×3 (06:47→16:21)
[2019-08-15] MEDS: INSULIN HUMULIN R 100 UNIT/ML 3ML SQ SCH ×4 (06:49→21:00)
[2019-08-15] MEDS: VANCOMYCIN 1GM+NS 250ML 250 ML IV SCH (08:38)
[2019-08-15] MEDS: CEFAZOLIN SODIUM 1 GM VIAL IVP SCH ×2 (08:38→22:08)
[2019-08-15] MEDS: CARVEDILOL 6.25 MG TABLET PO SCH ×2 (08:39→22:10)
[2019-08-15] MEDS: VITAMIN E 400 UNIT CAPSULE PO SCH (08:39)
[2019-08-15] MEDS: FERROUS GLUCONATE 325 MG TABLET PO SCH ×3 (08:39→22:09)
[2019-08-15] MEDS: GABAPENTIN 300 MG CAPSULE PO SCH ×3 (08:40→22:09)
[2019-08-15] MEDS: BUMETANIDE 1 MG TAB PO SCH ×2 (08:40→22:08)
[2019-08-15] MEDS: POLYETHYLENE GLYCOL 3350 17 GM POWD.PACK PO SCH (08:40)
[2019-08-15] MEDS: MAGNESIUM OXIDE 400 MG TABLET PO SCH (08:40)
[2019-08-15] MEDS: SUCRALFATE 1 GM TABLET PO SCH ×3 (08:40→22:08)
[2019-08-15] MEDS: AMLODIPINE BESYLATE 5 MG TAB PO SCH (08:41)
[2019-08-15] MEDS: **HM**(Terbinafine HCl 250 MG PO SCH (08:41)
[2019-08-15] MEDS: HYDRALAZINE HCL 25 MG TABLET PO SCH ×3 (08:41→22:09)
[2019-08-15] MEDS: **HM**Cholecalciferol (Vitamin D3) (Vitamin D3) 1,000 UNIT PO SCH (08:41)
[2019-08-15] MEDS: ENOXAPARIN SODIUM 30 MG/0.3 ML SQ SCH (08:42)
[2019-08-15] MEDS ORDERED: FAMOTIDINE 20MG TAB 20 MG TAB PO SCH (09:00)
--- NOTE | 2019-08-15 11:30 | NUR ---
RADAMES Note: Caity pending VA approval RADAMES spoke to Cait holm/Caity, resent all clinicals and order to VA. Currently pending approval at this time. Primary nurse aware. CM to cont to follow up.
--- NOTE | 2019-08-15 14:06 | NUR ---
CM Note: [facility] approval CM spoke to Cait w/[facility], verbalized VA was contacted and facility made aware pt has been approved, just currently pending Auth# to be generated once their MD release file, [facility] will f/u w/Caity for Auth#. [facility] filled out MD signed, pending [facility] to sign. Admitting MD: Dr Turner. Admin: Tk Elizondo. Dx: Sepsis. EMS arranged and faxed today, primary nurse to call [facility] once pt ready to DC. Awaiting [facility] to call back CM once cleared for transfer. Primary nurse aware. CM to cont to follow up.
--- NOTE | 2019-08-15 16:20 | NUR ---
CM Note: [facility] approval, pending bed CM spoke to Cait holm/Ca[facility], stated auth# given by DC, currently pending bed availability. Coordinating mihai/Rajinder to see if pt has a bed for today. Will call CM or primary nurse once bed is available. MOT filled out, pending house super to sign. EMS arranged for today, primary nurse to call [facility] once pt ready to DC. CM to cont to follow up.
--- NOTE | 2019-08-15 16:27 | NUR ---
CM note: [facility] clear to transfer CM spoke to Cait holm/Ca[facility], pt has a bed, safe to transfer via EMS today. Requested for pt to be tranferred after 6pm, pending bed to be cleaned. EMS arranged and faxed, primary nurse to call [facility] once pt ready to DC. Primary nurse aware to have pt transfer after 6pm today per [facility] request. CM to cont to follow up.
--- NOTE | 2019-08-15 22:01 | NUR ---
ARAM CHARGE NURSE FROM [facility] STATED THE ROOM IS CLEAN AND READY TO RECEIVE PATIENT AND CAN NOW CALL EMS PT WILL BE GOING TO ROOM 142
[2019-08-15] MEDS: TAMSULOSIN HCL 0.4 MG CAP.ER.24H PO SCH (22:09)
[2019-08-15] MEDS: INSULIN GLARGINE 100 UNITS/ML 10 ML VIAL SQ SCH (22:13)
--- NOTE | 2019-08-15 23:45 | NUR ---
PT TRANSFERRED VIA STRETCHER WITH EMS. PT AWAKE AND AWARE OF TRANSFER TO [facility]. PT DENIES PAIN. REZA SECURED TO LEG.
--- NOTE | 2019-08-16 00:40 | NUR ---
ARAM FROM [facility] ASKED ABOUT PT'S SUGAR AND LEVEL FOR 20:51 WAS GIVEN AND ALSO THAT PT RECEIVED HIS MEDS PER BERNARD DIEGO
== END 2019-08-15 23:51 | DRG 871 ==
LOC: EDH 13:09 → EDHIP 16:15 → 4BH 22:14
PROVIDERS: ADMIT Internal Medicine; ATTEND Internal Medicine
PROC: 02HV33Z Insertion of Infusion Device into Superior Vena Cava, Percutaneous Approach (ICD-10-PCS; 2019-08-08)
PROC: 30233N1 Transfusion of Nonautologous Red Blood Cells into Peripheral Vein, Percutaneous Approach (ICD-10-PCS; principal; 2019-08-09)
DX: A41.01 Sepsis due to Methicillin susceptible Staphylococcus aureus (principal); G92 Toxic encephalopathy; I50.33 Acute on chronic diastolic (congestive) heart failure; L03.90 Cellulitis, unspecified; M62.82 Rhabdomyolysis; N17.9 Acute kidney failure, unspecified; I13.0 Hypertensive heart and chronic kidney disease with heart failure and stage 1 through stage 4 chronic kidney disease, or unspecified chronic kidney disease; L02.415 Cutaneous abscess of right lower limb; L03.115 Cellulitis of right lower limb; L03.116 Cellulitis of left lower limb; D64.9 Anemia, unspecified; E11.22 Type 2 diabetes mellitus with diabetic chronic kidney disease; E66.01 Morbid (severe) obesity due to excess calories; E78.5 Hyperlipidemia, unspecified; E86.0 Dehydration; G47.00 Insomnia, unspecified; I25.10 Atherosclerotic heart disease of native coronary artery without angina pectoris; J45.909 Unspecified asthma, uncomplicated; K59.00 Constipation, unspecified; L97.519 Non-pressure chronic ulcer of other part of right foot with unspecified severity; E11.621 Type 2 diabetes mellitus with foot ulcer; N18.9 Chronic kidney disease, unspecified; N40.1 Benign prostatic hyperplasia with lower urinary tract symptoms; R33.8 Other retention of urine; R65.20 Severe sepsis without septic shock; Z20.828 Contact with and (suspected) exposure to other viral communicable diseases; Z74.01 Bed confinement status; Z79.4 Long term (current) use of insulin; Z79.899 Other long term (current) drug therapy; Z82.0 Family history of epilepsy and other diseases of the nervous system; Z82.3 Family history of stroke; Z82.49 Family history of ischemic heart disease and other diseases of the circulatory system; Z82.5 Family history of asthma and other chronic lower respiratory diseases; Z83.3 Family history of diabetes mellitus; Z90.49 Acquired absence of other specified parts of digestive tract; Z88.8 Allergy status to other drugs, medicaments and biological substances
CPT/HCPCS: 36415; 36430; 71045; 76770; 80048; 80053; 80202; 81001; 82550; 82948; 83605; 83735; 83874; 83880; 84100; 84132; 84145; 84484; 85025; 85378; 85610; 85651; 85730; 86140; 86850; 86900; 86901; 86922; 87040; 87070; 87076; 87077; 87088; 87186; 87486; 87581; 87633; 87798; 87804; 92610; 93005; 93306; 93356; 93970; 97039; 99291; A4344; G0378; J0360; J0690; J1650; J1815; J2543; J3370; J3490; J7030; J7050; P9016

== ENCOUNTER 2019-10-09 16:06 | Inpatient (IN) | payer OTHER ==
[~2019-10-09] VITALS: Ht 182.9 cm; Wt 77.2 kg
[~2019-10-09 16:06] MED LIST changes: -ATOR10TA69 PO; +FERR325T21 PO; -FERS325 PO; -GLIP10TA9 PO; -METF-446 PO; +METF750T46 PO; -SPIR25TA PO
[2019-10-09 16:49] LABS: BASOPHILS % (AUTO) 0.2 % (0.0-5.0); HEMATOCRIT 40.2 % (42-54); LYMPHOCYTES % (AUTO) 6.8 % (21.0-51.0); MEAN CORPUSCULAR HEMOGLOBIN 26.2 pg (27.0-33.0); MEAN CORPUSCULAR HGB CONC 32.3 g/dL (32.0-36.0); MEAN CORPUSCULAR VOLUME 80.9 fL (79-99); MONOCYTES % (AUTO) 3.9 % (3.0-13.0); NEUTROPHILS % (AUTO) 87.6 % (40.0-77.0); PLATELET COUNT (AUTO) 391 K/uL (130-400); RED BLOOD CELL COUNT(AUTO) 4.97 MIL/uL (4.50-6.20); RED CELL DISTRIBUTION WIDTH 16.2 % (11.0-15.5); WHITE BLOOD COUNT (AUTO) 18.6 K/uL (4.8-10.8)
[2019-10-09 17:06] LABS: INR 1.05 (0.85-1.15); PARTIAL THROMBOPLASTIN TIME 30.3 SEC (26.3-35.5); PROTHROMBIN TIME 11.3 SEC (9.6-11.6)
[2019-10-09 17:07] LABS: ALBUMIN 2.4 g/dL (3.5-5.0); BILIRUBIN,TOTAL 0.4 mg/dL (0.2-1.0); CREATININE 2.8 mg/dL (0.5-1.5); POTASSIUM 3.4 mmol/L (3.5-5.1); TOTAL PROTEIN, SERUM 7.3 g/dL (6.0-8.3)
[2019-10-09] MEDS ORDERED: SODIUM CHLORIDE 0.9% 50 ML IV ONE (17:08)
[2019-10-09 17:15] LABS: APPEARANCE,URINE Cloudy (CLEAR); BILIRUBIN,URINE Negative (NEGATIVE); COLOR,URINE Yellow (YELLOW); GLUCOSE, URINE (UA) Negative (NEGATIVE); KETONES,URINE Negative (NEGATIVE); LEUKOCYTE ESTERASE ,URINE Large (NEGATIVE); NITRATE,URINE Negative (NEGATIVE); OCCULT BLOOD,URINE Negative (NEGATIVE); PROTEIN,URINE Negative (NEGATIVE)
[2019-10-09 17:30] LABS: BACTERIA,URINE Few /HPF (None Seen); SQUAMOUS EPITHELIAL CELL,UR Rare /HPF (0-2); WBC,URINE 26-50 /HPF (0-1)
[2019-10-09] MEDS ORDERED: LEVOFLOXACIN 500 MG/D5W 100 ML 100 ML ONE (17:33)
[2019-10-09] MEDS ORDERED: SODIUM CHLORIDE 0.9% 1000ML 1,000 ML IV SCH (18:47)
[2019-10-09] MEDS ORDERED: ERGOCALCIFEROL (VITAMIN D2) 50,000 UNIT CAPSULE PO ONE (19:00)
[2019-10-09] MEDS ORDERED: ONDANSETRON HCL 4 MG/2 ML VIAL IV PRN (19:00)
[2019-10-09] MEDS ORDERED: ACETAMINOPHEN 325 MG TAB PO PRN ×2 (19:00)
[2019-10-09] MEDS ORDERED: HYDRALAZINE HCL 20 MG/ML VIAL IV PRN (19:00)
[2019-10-09] MEDS ORDERED: INSULIN HUMULIN R 100 UNIT/ML 3ML ONE (19:17)
[2019-10-09] MEDS ORDERED: RENAL DOSE IV SCH (19:30)
[2019-10-09 20:47] VITALS: BP 100/59
[2019-10-09] MEDS: ACETYLCYSTEINE 600 MG CAPSULE PO SCH (21:00)
[2019-10-09] MEDS: TAMSULOSIN HCL 0.4 MG CAP.ER.24H PO SCH (21:00)
--- NOTE | 2019-10-09 22:00 | NUR ---
Pt admitted to unit and resting in bed at this time; assessment completed however pt cannot communicate clearly to complete admission documentation; information transcribed from pts medical record; pt is A&Ox1 and confused at times, attempting to pull at and remove tele leads, PIV, gown however pt is easily redirected; no distress noted at this time. Erica, RN
[2019-10-09] MEDS: FAMOTIDINE/PF 20 MG/2 ML VIAL IV SCH (22:58)
[2019-10-09] MEDS: ZOSYN 3.375GM+NS 50ML 50 ML IV SCH (22:59)
[2019-10-09] MEDS: BUMETANIDE 0.25 MG/ML 4 ML VIAL IVP SCH (22:59)
[2019-10-09] MEDS ORDERED: SODIUM CHLORIDE 0.9% 250 ML IV ONE (23:02)
[2019-10-09 23:59] VITALS: BP 106/59
[2019-10-10 04:46] VITALS: BP 119/55
[2019-10-10 07:00] VITALS: BP 106/66
[2019-10-10 07:05] LABS: HEMOGLOBIN A1C 6.9 % (4.0-6.0)
--- NOTE | 2019-10-10 07:45 | NUR ---
ASSESSMENT ENCOUNTERED PT IN SEMI OLIVIER'S POSITION, A&O TO NAME ONLY BY SOFT MUMBLE, PT IS UNABLE TO FOLLOW COMMANDS AND WITHDRAWS DURING EXAMINATION. PT DOES NOT APPEAR TO BE IN ANY DISTRESS. PT MOVES HEAD AWAY WHEN JELLO PLACED IN FRONT OF MOUTH WHILE EXPLAINING TO PATIENT TO EAT. CALL LIGHT WITHIN REACH, BED ALARM ACTIVATED.
[2019-10-10] MEDS ORDERED: ASPIRIN 81 MG EC TAB ONE (07:56)
[2019-10-10 08:08] LABS: CRP QUANTITATIVE 290.8 mg/L (0.00-9.0)
[2019-10-10] MEDS: ZOSYN 3.375GM+NS 50ML 50 ML IV SCH ×2 (08:19→20:03)
[2019-10-10] MEDS: BUMETANIDE 0.25 MG/ML 4 ML VIAL IVP SCH ×2 (08:19→20:03)
[2019-10-10] MEDS: ACETYLCYSTEINE 600 MG CAPSULE PO SCH ×2 (08:19→20:03)
[2019-10-10] MEDS: ASCORBIC ACID 500 MG TAB PO SCH (08:20)
[2019-10-10] MEDS: ENOXAPARIN SODIUM 30 MG/0.3 ML SQ SCH (08:20)
[2019-10-10] MEDS: FAMOTIDINE/PF 20 MG/2 ML VIAL IV SCH ×2 (08:20→20:03)
[2019-10-10] MEDS: ASPIRIN 325 MG TABLET PO SCH (08:21)
[2019-10-10] MEDS ORDERED: ZINC SULFATE 220 CAPSULE ONE (08:24)
[2019-10-10] MEDS: ZINC SULFATE 220 CAPSULE PO SCH (08:25)
[2019-10-10] MEDS ORDERED: DEXAMETHASONE 4 MG TAB PO SCH (09:00)
[2019-10-10 11:00] VITALS: BP 121/74
--- NOTE | 2019-10-10 12:25 | NUR ---
CHART CHECK COMPLETED. Pt IS AN 84 Y.O. MALE ADMITTED SECONDARY TO ACUTE HYPOXEMIA DUE TO SARS COVID VIRAL PNEUMONIA. Pt HAS A PAST MEDICAL HISTORY SIGNIFICANT FOR DMII, HTN, HLD, DIASTOLIC HEART FAILURE, ACUTE URINARY RETENTION. Pt CURRENTLY ON CLEAR LIQUID DIET. PLEASE REQUEST FORMAL SKILLED SPEECH/SWALLOW EVALUATION IF Pt PRESENTS WITH +S/S OF ASPIRATION SUCH COUGH RESPONSE, THROAT CLEAR, OR WET VOCAL QUALITY DURING P.O. Addendum: 10/10/19 at 1228 by KURTIS VARGAS, [facility] ST Amended: Links added.
--- NOTE | 2019-10-10 15:00 | NUR ---
UPDATED INFORMED THAT PT WOULD STATE NAME ONLY AND COULD NOT FOLLOW BASIC COMMANDS, PT WOULD WITHDRAW DURING ASSESSMENT AND ATTEMPT TO REMOVE STETHOSCOPE DURING AUSCULTATION OF LUNGS, PT WOULD CLOSE MOUTH AND MOVE HEAD AWAY WHEN EXPLAINING AND ATTEMPTING TO FEED. IS REQUESTING PEG TUBE FOR NUTRITION AND ALSO GAVE TELEPHONE CONSENT FOR DO NOT RESUSCITATE THAT INCLUDING CHEST COMPRESSIONS, INTUBATION, CARDIOVERSION AND MEDICATION. TELEPHONE CONSENT WITNESSED BY ALMA GURROLA RN.
[2019-10-10 16:00] VITALS: BP 121/63
[2019-10-10 20:00] VITALS: BP 125/74
[2019-10-10] MEDS: TAMSULOSIN HCL 0.4 MG CAP.ER.24H PO SCH (20:03)
[2019-10-10] MEDS ORDERED: INSULIN GLARGINE 100 UNITS/ML 10 ML VIAL SQ ONE (22:45)
[2019-10-11] VITALS (7 sets, daily range): BP systolic 94–122; BP diastolic 54–78
--- NOTE | 2019-10-11 05:35 | NUR ---
assessment pt. is a&o times 0. patient did not communicate through the night. he just moves his arms in the air back and forth. turned on the even hours. patient did take his meds in some jell0 last night. pt. is on 3 liters nasal canula sating 94%.
[2019-10-11] MEDS: INSULIN HUMULIN R 100 UNIT/ML 3ML SQ SCH ×4 (06:30→21:00)
--- NOTE | 2019-10-11 06:30 | NUR ---
am blood sugar pt. am blood sugar is 232. patient is not eating any food. held the 4 units of insulin.
[2019-10-11 07:55] LABS: BASOPHILS % (AUTO) 0.2 % (0.0-5.0); EOSINOPHILS % (AUTO) 0.1 % (0.0-8.0); HEMATOCRIT 42.2 % (42-54); MEAN CORPUSCULAR HEMOGLOBIN 25.9 pg (27.0-33.0); MEAN CORPUSCULAR VOLUME 83.6 fL (79-99); NEUTROPHILS % (AUTO) 89.1 % (40.0-77.0); PLATELET COUNT (AUTO) 347 K/uL (130-400); RED BLOOD CELL COUNT(AUTO) 5.05 MIL/uL (4.50-6.20); RED CELL DISTRIBUTION WIDTH 16.4 % (11.0-15.5); WHITE BLOOD COUNT (AUTO) 19.4 K/uL (4.8-10.8)
[2019-10-11 08:14] LABS: ALBUMIN 2.1 g/dL (3.5-5.0); BILIRUBIN,TOTAL 0.4 mg/dL (0.2-1.0); TOTAL PROTEIN, SERUM 7.2 g/dL (6.0-8.3)
[2019-10-11 08:18] LABS: INR 1.13 (0.85-1.15); PARTIAL THROMBOPLASTIN TIME 31.5 SEC (26.3-35.5); PROTHROMBIN TIME 12.1 SEC (9.6-11.6)
[2019-10-11 08:27] LABS: POTASSIUM 2.9 mmol/L (3.5-5.1)
[2019-10-11 08:35] LABS: CRP QUANTITATIVE 289.8 mg/L (0.00-9.0)
[2019-10-11 08:37] LABS: % IRON SATURATION 17.5 % (30-44)
[2019-10-11] MEDS: ZOSYN 3.375GM+NS 50ML 50 ML IV SCH ×2 (09:00→21:00)
[2019-10-11] MEDS: ENOXAPARIN SODIUM 30 MG/0.3 ML SQ SCH (09:00)
[2019-10-11] MEDS: ASPIRIN 325 MG TABLET PO SCH (09:00)
[2019-10-11] MEDS: FAMOTIDINE/PF 20 MG/2 ML VIAL IV SCH (09:00)
[2019-10-11 09:21] LABS: B-TYPE NATRIURETIC PEPTIDE 385 pg/mL (0-100)
--- NOTE | 2019-10-11 10:27 | NUR ---
RD NOTIFICATION - TUBE FEEDING Recommend continuous Vital AF 1.2 initiated at 15mls/hr. Goal rate of 40mls/hr. Recommend flush at 250 Q6hrs. Recommendations faxed to [facility] RN notified. RD Note: Pt possible dehydration, altered renal labs, elevated WBC, decreased serum K. Flexi flow vs Dobhoff placement, as per EMR. Pt with Dyspnea and cough per MD note. RD to continue to monitor. Please notify as additional nutrition concerns arise. Thank you.
[2019-10-11] MEDS ORDERED: POTASSIUM CHLORIDE 20 MEQ ERTAB PO PRN (10:30)
[2019-10-11] MEDS ORDERED: MAGNESIUM 2GM PREMIX 50ML 50 ML IV PRN (10:30)
[2019-10-11] MEDS ORDERED: POTASSIUM CHLORIDE 10MEQ/100ML 100 ML IV PRN (10:30)
--- NOTE | 2019-10-11 14:16 | NUR ---
[facility]-- SPOKE TO PATIENT'S SPOUSE RE D/C PLANNING WAS DISCHARGED FROM [facility] TO HOME ABOUT 2 WEEKS AGO - HAS PROVIDER FROM [facility] 3X WEEK FOR BATHING, AN HOME HEALTH FROM [facility] DAILY FOR AN HOUR FOR WOUND CARE ETC. HAS ALL DME NECESSARY INCLUDING O2 STATES PATIENT WAS NOT WELL, NOT EATING OR RESPONSIVE. IS NOW DNR/DNI HERE IN THE HOSPITAL. SPOUSE STATES SHE WAS WATCHING PATIENT AT HOME AND JUST COULD NOT DO IT. ADVISED SPOUSE THAT [facility] COULD CALL HER- STATES SHE IS TO EMOTIONALLY EXHAUSTED TO TALK ABOUT IT RIGHT NOW WILL LEAVE NOTE FOR ESAU Addendum: 10/11/19 at 1428 by CHASIDY CROWLEY RN Amended: Links added.
[2019-10-11] MEDS ORDERED: ASPIRIN 81MG TAB.CHEW ONE (14:17)
[2019-10-11] MEDS ORDERED: SODIUM CHLORIDE 0.9% 1000ML 1,000 ML IV SCH (17:45)
[2019-10-11] MEDS: ACETYLCYSTEINE 600 MG CAPSULE PO SCH ×2 (18:52→19:05)
[2019-10-11] MEDS: ASCORBIC ACID 500 MG TAB PO SCH (18:52)
[2019-10-11] MEDS: ZINC SULFATE 220 CAPSULE PO SCH (18:53)
[2019-10-11 20:27] LABS: APPEARANCE,URINE Turbid (CLEAR); BILIRUBIN,URINE Negative (NEGATIVE); COLOR,URINE Dark Yellow (YELLOW); GLUCOSE, URINE (UA) Negative (NEGATIVE); KETONES,URINE Negative (NEGATIVE); LEUKOCYTE ESTERASE ,URINE Large (NEGATIVE); NITRATE,URINE Negative (NEGATIVE); OCCULT BLOOD,URINE Negative (NEGATIVE); PROTEIN,URINE Trace mg/dL (NEGATIVE)
[2019-10-11 20:39] LABS: BACTERIA,URINE Moderate /HPF (None Seen); MUCUS,URINE Few LPF (None Seen); SQUAMOUS EPITHELIAL CELL,UR Few /HPF (0-2); WBC,URINE 51-100 /HPF (0-1)
[2019-10-11] MEDS: CARVEDILOL 3.125 MG TABLET PO SCH (21:00)
[2019-10-11] MEDS: INSULIN GLARGINE 100 UNITS/ML 10 ML VIAL SQ SCH (21:00)
[2019-10-11] MEDS: TAMSULOSIN HCL 0.4 MG CAP.ER.24H PO SCH (21:00)
[2019-10-11 21:03] LABS: POTASSIUM,URINE RANDOM 66 mmol/L (25-125); SODIUM,URINE RANDOM < 15 mmol/l (40-220)
--- NOTE | 2019-10-11 23:00 | NUR ---
Pts tube feeds increased to rate of 20 and flushed with 250ml of water; no distress noted. Erica, RN
--- NOTE | 2019-10-12 | NUR ---
Pts potassium level = 3.1; 10meq/7.5ml of potassium elixir administered at this time. Erica RN
--- NOTE | 2019-10-12 00:20 | NUR ---
Dr Mora returned page at [phone] and informed of pts BS = 375 and that pt received 8 units Humulin and 15 units lantus; physician stated to recheck pt in 2 hours; pts BS = 333 at this time. Erica
[2019-10-12] MEDS: POTASSIUM CHLORIDE 10% ELIXIR 20 MEQ/15 ML UDCUP PO PRN (02:00)
[2019-10-12 04:57] VITALS: BP 118/68
[2019-10-12 05:13] LABS: HEMATOCRIT 41.6 % (42-54); MEAN CORPUSCULAR HEMOGLOBIN 26.1 pg (27.0-33.0); MEAN CORPUSCULAR HGB CONC 31.3 g/dL (32.0-36.0); MEAN CORPUSCULAR VOLUME 83.4 fL (79-99); RED BLOOD CELL COUNT(AUTO) 4.99 MIL/uL (4.50-6.20); RED CELL DISTRIBUTION WIDTH 16.5 % (11.0-15.5); WHITE BLOOD COUNT (AUTO) 13.8 K/uL (4.8-10.8)
[2019-10-12 05:42] LABS: PHOSPHORUS 3.8 mg/dL (2.5-4.9)
[2019-10-12 05:48] LABS: CREATININE 3.6 mg/dL (0.5-1.5); MAGNESIUM 2.4 mg/dL (1.80-2.40); POTASSIUM 3.3 mmol/L (3.5-5.1); THYROID STIMULATING HORMONE 0.15 uIU/mL (0.36-3.74); URIC ACID 13.9 mg/dL (2.6-7.2)
[2019-10-12] MEDS: INSULIN HUMULIN R 100 UNIT/ML 3ML SQ SCH ×4 (06:12→21:59)
[2019-10-12 08:00] VITALS: BP 105/68
[2019-10-12] MEDS: ZOSYN 3.375GM+NS 50ML 50 ML IV SCH ×2 (10:10→21:58)
[2019-10-12] MEDS: FAMOTIDINE/PF 20 MG/2 ML VIAL IV SCH (10:10)
[2019-10-12] MEDS: ENOXAPARIN SODIUM 30 MG/0.3 ML SQ SCH (10:11)
[2019-10-12] MEDS: CARVEDILOL 3.125 MG TABLET PO SCH ×2 (10:11→21:58)
[2019-10-12] MEDS: DEXAMETHASONE SOD PHOSPHATE 4 MG/ML 1ML VIAL IVP SCH (10:11)
[2019-10-12] MEDS: ASCORBIC ACID 500 MG TAB PO SCH (10:12)
[2019-10-12] MEDS: FOLIC ACID/VITAMIN B COMP W-C 1 CAP TAB PO SCH (10:12)
[2019-10-12] MEDS: ASPIRIN 325 MG TABLET PO SCH (10:12)
[2019-10-12] MEDS: ACETYLCYSTEINE 600 MG CAPSULE PO SCH ×2 (10:12→21:58)
[2019-10-12 12:00] VITALS: BP 140/82
[2019-10-12] MEDS: ZINC SULFATE 220 CAPSULE PO SCH (14:20)
[2019-10-12 16:00] VITALS: BP 135/84
[2019-10-12] MEDS: DEXTROSE 5%-WATER 1,000 ML IV SCH (17:10)
[2019-10-12 19:00] VITALS: BP 121/61
[2019-10-12] MEDS: TAMSULOSIN HCL 0.4 MG CAP.ER.24H PO SCH (21:58)
[2019-10-12] MEDS: INSULIN GLARGINE 100 UNITS/ML 10 ML VIAL SQ SCH (22:00)
[2019-10-12 23:00] VITALS: BP 124/74
[2019-10-13 03:00] VITALS: BP 144/80
[2019-10-13 04:44] LABS: BASOPHILS % (AUTO) 0.2 % (0.0-5.0); HEMATOCRIT 36.8 % (42-54); LYMPHOCYTES % (AUTO) 5.2 % (21.0-51.0); MEAN CORPUSCULAR HEMOGLOBIN 26.3 pg (27.0-33.0); MEAN CORPUSCULAR HGB CONC 31.8 g/dL (32.0-36.0); MEAN CORPUSCULAR VOLUME 82.7 fL (79-99); MONOCYTES % (AUTO) 3.2 % (3.0-13.0); NEUTROPHILS % (AUTO) 90.5 % (40.0-77.0); PLATELET COUNT (AUTO) 256 K/uL (130-400); RED BLOOD CELL COUNT(AUTO) 4.45 MIL/uL (4.50-6.20); RED CELL DISTRIBUTION WIDTH 15.9 % (11.0-15.5); WHITE BLOOD COUNT (AUTO) 12.8 K/uL (4.8-10.8)
[2019-10-13 05:07] LABS: CREATININE 3.7 mg/dL (0.5-1.5); MAGNESIUM 2.2 mg/dL (1.80-2.40)
[2019-10-13 05:19] LABS: POTASSIUM 2.8 mmol/L (3.5-5.1)
--- NOTE | 2019-10-13 05:27 | NUR ---
Dr Mora notified of pts K = 2.8, Glucose = 445 and BUN = 197; physician stated to give pt 10 units of Humulin and recheck in 2 hours; pt is ordered Potassium protocol. ANAM Maldonado
[2019-10-13] MEDS: POTASSIUM CHLORIDE 10% ELIXIR 20 MEQ/15 ML UDCUP PO PRN (05:33)
[2019-10-13] MEDS: DEXTROSE 5%-WATER 1,000 ML IV SCH (05:34)
[2019-10-13] MEDS: INSULIN HUMULIN R 100 UNIT/ML 3ML SQ SCH ×4 (05:35→20:49)
[2019-10-13 08:00] VITALS: BP 133/66
[2019-10-13] MEDS ORDERED: POTASSIUM CHLORIDE 20MEQ/100ML 100 ML IV PRN (09:30)
[2019-10-13] MEDS ORDERED: POTASSIUM CHLORIDE 20 MEQ ERTAB PO PRN (09:30)
[2019-10-13] MEDS ORDERED: POTASSIUM CHLORIDE 10% ELIXIR 20 MEQ/15 ML UDCUP PO PRN (09:30)
[2019-10-13] MEDS: DEXAMETHASONE SOD PHOSPHATE 4 MG/ML 1ML VIAL IVP SCH (10:14)
[2019-10-13] MEDS: ZOSYN 3.375GM+NS 50ML 50 ML IV SCH ×2 (10:14→20:48)
[2019-10-13] MEDS: FOLIC ACID/VITAMIN B COMP W-C 1 CAP TAB PO SCH (10:14)
[2019-10-13] MEDS: FAMOTIDINE/PF 20 MG/2 ML VIAL IV SCH (10:14)
[2019-10-13] MEDS: ASPIRIN 325 MG TABLET PO SCH (10:15)
[2019-10-13] MEDS: ACETYLCYSTEINE 600 MG CAPSULE PO SCH ×2 (10:15→20:48)
[2019-10-13] MEDS: ASCORBIC ACID 500 MG TAB PO SCH (10:15)
[2019-10-13] MEDS ORDERED: INSULIN HUMULIN R 100 UNIT/ML 3ML SQ SCH (10:15)
[2019-10-13] MEDS: CARVEDILOL 3.125 MG TABLET PO SCH ×2 (10:16→20:48)
[2019-10-13] MEDS: ENOXAPARIN SODIUM 30 MG/0.3 ML SQ SCH (10:17)
[2019-10-13] MEDS: ZINC SULFATE 220 CAPSULE PO SCH (10:41)
[2019-10-13 11:20] VITALS: BP 150/82
[2019-10-13 16:00] VITALS: BP 135/79
[2019-10-13 19:00] VITALS: BP 161/84
[2019-10-13] MEDS ORDERED: SODIUM CHLORIDE 0.9% 250 ML IV ONE (19:54)
[2019-10-13] MEDS: TAMSULOSIN HCL 0.4 MG CAP.ER.24H PO SCH (20:48)
[2019-10-13] MEDS: INSULIN GLARGINE 100 UNITS/ML 10 ML VIAL SQ SCH (20:50)
[2019-10-13 23:00] VITALS: BP 130/81
[2019-10-14 03:00] VITALS: BP 128/75
[2019-10-14] MEDS: INSULIN HUMULIN R 100 UNIT/ML 3ML SQ SCH ×4 (06:06→20:40)
[2019-10-14 07:50] VITALS: BP 124/83
[2019-10-14] MEDS: ZOSYN 3.375GM+NS 50ML 50 ML IV SCH ×2 (10:51→19:49)
[2019-10-14] MEDS: DEXAMETHASONE SOD PHOSPHATE 4 MG/ML 1ML VIAL IVP SCH (10:51)
[2019-10-14] MEDS: ACETYLCYSTEINE 600 MG CAPSULE PO SCH ×2 (10:52→19:50)
[2019-10-14] MEDS: ASPIRIN 325 MG TABLET PO SCH (10:52)
[2019-10-14] MEDS: FAMOTIDINE/PF 20 MG/2 ML VIAL IV SCH (10:52)
[2019-10-14] MEDS: ENOXAPARIN SODIUM 30 MG/0.3 ML SQ SCH (10:52)
[2019-10-14] MEDS: ZINC SULFATE 220 CAPSULE PO SCH (10:53)
[2019-10-14] MEDS: CARVEDILOL 3.125 MG TABLET PO SCH ×2 (10:53→19:49)
[2019-10-14] MEDS: FOLIC ACID/VITAMIN B COMP W-C 1 CAP TAB PO SCH (10:53)
[2019-10-14] MEDS: ASCORBIC ACID 500 MG TAB PO SCH (10:59)
[2019-10-14 11:27] VITALS: BP 114/67
[2019-10-14 11:42] LABS: BASOPHILS % (AUTO) 0.2 % (0.0-5.0); HEMATOCRIT 36.5 % (42-54); MEAN CORPUSCULAR HEMOGLOBIN 26.4 pg (27.0-33.0); MEAN CORPUSCULAR HGB CONC 32.1 g/dL (32.0-36.0); MEAN CORPUSCULAR VOLUME 82.4 fL (79-99); MONOCYTES % (AUTO) 3.1 % (3.0-13.0); NEUTROPHILS % (AUTO) 90.9 % (40.0-77.0); PLATELET COUNT (AUTO) 219 K/uL (130-400); RED BLOOD CELL COUNT(AUTO) 4.43 MIL/uL (4.50-6.20); RED CELL DISTRIBUTION WIDTH 15.9 % (11.0-15.5); WHITE BLOOD COUNT (AUTO) 14.4 K/uL (4.8-10.8)
[2019-10-14 12:08] LABS: CREATININE 3.4 mg/dL (0.5-1.5)
[2019-10-14 12:20] LABS: POTASSIUM 2.7 mmol/L (3.5-5.1)
--- NOTE | 2019-10-14 13:30 | NUR ---
DISCUSSED PLAN OF CARE W ANAM GREY. PT VERY LOW AT HOME PRIOR TO ADMIT- SPOUSE STATED TO CM THAT HE WAS DYING AT HOME AND I DON'T WANT TO WATCH IT" ORDER FOR 'APPROPRIATE PLACMENT' WILL NEED TO REVISIT WITH SPOUSE. PREVIOUSLY AT [facility]. WILL ATTEMPT TO REACH SPOUSE AND UPDATE RN
--- NOTE | 2019-10-14 14:50 | NUR ---
CALL OUT TO SPOUSE RE DC PLAN, NO ANSWER, CALL TO SON, THIS CM ADVISED SON RAMSES THAT THERE WAS AN ORDER FOR CM RE DC PLANNING; UPDATED SON ON NGT FEEDING = AFFECTS PLACEMENT IF NEEDS PEG, WILL HAVE TO WAIT UNTIL COVID NEGATIVE FOR GI TO PLACE. POSSIBLE [facility] PLACEMENT UNTIL THEN. STATES WILL DISCUSS WITH SPOUSE( SLEEPING AT THIS TIME AND HAVE HER CALL CM BACK CM WILL FOLLOW UP WITH [facility] TO CLARIFY RULES RE: NGT FEEDINGS.
--- NOTE | 2019-10-14 14:55 | NUR ---
DISCUSSED PLAN OF CARE W ANAM GREY. PT VERY LOW AT HOME PRIOR TO ADMIT- SPOUSE STATED TO THAT HE WAS DYING AT HOME AND I DON'T WANT TO WATCH IT" ORDER FOR 'APPROPRIATE PLACMENT' WILL NEED TO REVISIT WITH SPOUSE. PREVIOUSLY AT [facility]. WILL ATTEMPT TO REACH SPOUSE AND UPDATE RN Addendum: 10/14/19 at 1459 by CHASIDY CROWLEY RN CM DUPLICATE ENTRY- LATE
[2019-10-14 15:17] VITALS: BP 136/78
--- NOTE | 2019-10-14 16:05 | NUR ---
SPOUSE CALL BACK, WILL PURSUE PEG FOR PATIENT DISCUSSED WITH SPOUSE- WHERE CAN PATIENT GO WITH NGT UNTIL CLEARED FOR PEG? SPOUSE IS VERY HAPPY WITH PATIENT'S IMPROVEMENT W FEEDING/FLUID AND WANTS TO PURSUE PROGRESSIVE CARE. CASE MANAGEMENT TO FOLLOW UP WITH CASSIDY OR KEN OR NE ALTERNATE CARE SITE TO SEE WHICH WILL BE MOST APPROPRIATE FOR PATIENT WHILE WAITING FOR GI TO DO PEG.
[2019-10-14] MEDS ORDERED: MORPHINE SULFATE 2 MG/ML 1ML SYG IVP PRN (18:15)
[2019-10-14] MEDS: TAMSULOSIN HCL 0.4 MG CAP.ER.24H PO SCH (19:49)
[2019-10-14] MEDS: MORPHINE SULFATE 4 MG/1ML SYG IV PRN (19:51)
[2019-10-14 20:07] VITALS: BP 122/59
[2019-10-14] MEDS: INSULIN GLARGINE 100 UNITS/ML 10 ML VIAL SQ SCH (20:41)
[2019-10-14 23:16] VITALS: BP 119/61
[2019-10-15 04:04] VITALS: BP 124/67
[2019-10-15] MEDS: INSULIN HUMULIN R 100 UNIT/ML 3ML SQ SCH ×4 (06:07→21:28)
--- NOTE | 2019-10-15 06:26 | NUR ---
assessment patient answered questions this morning. responded to his name. told me his wifes name. he is currently on 2 liters nasal canula. ng to tube feedings at 40. blood sugar this morning was 154 was given 4 units of insulin. angel catheter in place drained 700 ml of clear yellow urine. vitals are stable will continue to monitor.
[2019-10-15 07:00] VITALS: BP 139/78
[2019-10-15 09:59] LABS: HEMATOCRIT 38.4 % (42-54); MEAN CORPUSCULAR HGB CONC 31.8 g/dL (32.0-36.0); MEAN CORPUSCULAR VOLUME 81.9 fL (79-99); NUCLEATED RED BLOOD CELLS 0.2 % (0.0-0.19); PLATELET COUNT (AUTO) 207 K/uL (130-400); RED BLOOD CELL COUNT(AUTO) 4.69 MIL/uL (4.50-6.20); RED CELL DISTRIBUTION WIDTH 15.9 % (11.0-15.5); WHITE BLOOD COUNT (AUTO) 13.1 K/uL (4.8-10.8)
[2019-10-15 10:15] LABS: CREATININE 2.7 mg/dL (0.5-1.5)
[2019-10-15 10:18] LABS: POTASSIUM 2.8 mmol/L (3.5-5.1)
[2019-10-15] MEDS: ASPIRIN 325 MG TABLET PO SCH (10:29)
[2019-10-15] MEDS: ZOSYN 3.375GM+NS 50ML 50 ML IV SCH ×2 (10:29→19:56)
[2019-10-15] MEDS: DEXAMETHASONE SOD PHOSPHATE 4 MG/ML 1ML VIAL IVP SCH (10:29)
[2019-10-15] MEDS: FAMOTIDINE/PF 20 MG/2 ML VIAL IV SCH (10:29)
[2019-10-15] MEDS: ACETYLCYSTEINE 600 MG CAPSULE PO SCH ×2 (10:30→19:57)
[2019-10-15] MEDS: ZINC SULFATE 220 CAPSULE PO SCH (10:30)
[2019-10-15] MEDS: CARVEDILOL 3.125 MG TABLET PO SCH ×2 (10:30→19:56)
[2019-10-15] MEDS: ENOXAPARIN SODIUM 30 MG/0.3 ML SQ SCH (10:30)
[2019-10-15] MEDS: FOLIC ACID/VITAMIN B COMP W-C 1 CAP TAB PO SCH (10:30)
[2019-10-15] MEDS: ASCORBIC ACID 500 MG TAB PO SCH (10:30)
[2019-10-15 11:00] VITALS: BP 147/76
[2019-10-15 11:39] LABS: LYMPHOCYTES % (MANUAL) 7 % (22-44); MAN.DIFF COMMENT-IMPRESSION MANUAL DIFFERENTIAL; MONOCYTES % (MANUAL) 6 % (2-9); PLATELET MORPHOLOGY COMMENT ADEQUATE; SEGMENTED NEUTROPHILS % 87 % (40-70)
[2019-10-15] MEDS: MORPHINE SULFATE 4 MG/1ML SYG IV PRN ×2 (12:28→21:34)
[2019-10-15 16:00] VITALS: BP 114/66
--- NOTE | 2019-10-15 16:00 | NUR ---
REVIEWED TELE STRIPS WITH RN TODAY. SOME PAUSES AND JUNCTIONAL BEATS SEEN. WHEN AUTOMATIC TRIMMING SEWER/MD ROUNDED, HOSPICE WAS DISCUSSED W RN & CM --BUT NO DISCUSSION WITH FAMILY YET . CM SEES NO CHANGE TO DC PLAN AT THIS TIME. FAMILY REQUESTING [facility]/ PURSUIT OF IMPROVED HEALTH. CM TO WAIT FOR MD ORDERS
[2019-10-15] MEDS: TAMSULOSIN HCL 0.4 MG CAP.ER.24H PO SCH (19:57)
[2019-10-15 20:00] VITALS: BP 146/84
[2019-10-15] MEDS: INSULIN GLARGINE 100 UNITS/ML 10 ML VIAL SQ SCH (21:29)
[2019-10-16] VITALS: BP 114/63
[2019-10-16 04:00] VITALS: BP 109/58
[2019-10-16 04:20] LABS: BASOPHILS % (AUTO) 0.2 % (0.0-5.0); HEMATOCRIT 36.7 % (42-54); LYMPHOCYTES % (AUTO) 4.2 % (21.0-51.0); MEAN CORPUSCULAR HEMOGLOBIN 26.2 pg (27.0-33.0); MEAN CORPUSCULAR HGB CONC 31.3 g/dL (32.0-36.0); MEAN CORPUSCULAR VOLUME 83.6 fL (79-99); MONOCYTES % (AUTO) 3.9 % (3.0-13.0); NEUTROPHILS % (AUTO) 89.4 % (40.0-77.0); NUCLEATED RED BLOOD CELLS 0.2 % (0.0-0.19); PLATELET COUNT (AUTO) 176 K/uL (130-400); RED BLOOD CELL COUNT(AUTO) 4.39 MIL/uL (4.50-6.20); WHITE BLOOD COUNT (AUTO) 12.5 K/uL (4.8-10.8)
[2019-10-16 05:01] LABS: CREATININE 2.7 mg/dL (0.5-1.5); POTASSIUM 3.5 mmol/L (3.5-5.1)
[2019-10-16] MEDS: INSULIN HUMULIN R 100 UNIT/ML 3ML SQ SCH ×3 (05:51→21:00)
--- NOTE | 2019-10-16 06:08 | NUR ---
assessment pt. is alert and oriented time 1. no complaints of any pain. pt. is on 3 liters on oxygen sating 99%. ng tube with feendings at 40/hr. angel draining clear yelllow urine. vitals stable bun this morning at 173. MD note states poor candidate for dialysis. will continue to monitor
[2019-10-16 08:00] VITALS: BP 135/77
[2019-10-16] MEDS: DEXAMETHASONE SOD PHOSPHATE 4 MG/ML 1ML VIAL IVP SCH (08:19)
[2019-10-16] MEDS: ENOXAPARIN SODIUM 30 MG/0.3 ML SQ SCH (08:19)
[2019-10-16] MEDS: FAMOTIDINE/PF 20 MG/2 ML VIAL IV SCH (08:19)
[2019-10-16] MEDS: FOLIC ACID/VITAMIN B COMP W-C 1 CAP TAB PO SCH (08:20)
[2019-10-16] MEDS: ZOSYN 3.375GM+NS 50ML 50 ML IV SCH ×2 (08:20→19:47)
[2019-10-16] MEDS: ACETYLCYSTEINE 600 MG CAPSULE PO SCH ×2 (08:20→20:46)
[2019-10-16] MEDS: ASCORBIC ACID 500 MG TAB PO SCH (08:21)
[2019-10-16] MEDS: CARVEDILOL 3.125 MG TABLET PO SCH ×2 (08:22→19:47)
[2019-10-16] MEDS: ASPIRIN 81MG TAB.CHEW PO SCH (09:00)
[2019-10-16 11:30] VITALS: BP 132/70
[2019-10-16] MEDS: ZINC SULFATE 220 CAPSULE PO SCH (12:00)
[2019-10-16] MEDS: DEXTROSE 5%-WATER 1,000 ML IV SCH ×2 (13:00→21:01)
[2019-10-16 15:30] VITALS: BP 125/68
[2019-10-16] MEDS: TAMSULOSIN HCL 0.4 MG CAP.ER.24H PO SCH (19:47)
[2019-10-16 20:28] VITALS: BP 153/78
[2019-10-16] MEDS: MORPHINE SULFATE 4 MG/1ML SYG IV PRN (20:46)
[2019-10-16] MEDS: INSULIN GLARGINE 100 UNITS/ML 10 ML VIAL SQ SCH (21:01)
[2019-10-17 00:28] VITALS: BP 150/69
[2019-10-17 04:28] VITALS: BP 131/64
[2019-10-17] MEDS: INSULIN HUMULIN R 100 UNIT/ML 3ML SQ SCH ×3 (06:04→16:30)
--- NOTE | 2019-10-17 06:07 | NUR ---
assessment pt. is alert and oriented times 1 no complaints of any pain. gave him one shot of morphine last night. patient was moving his arms nonstop and grimacing. after the morphine pt. slept comfortable through the night. IV fluids starged with dextrose in them at [address] draining clear yellow urine. feedings going at 40 mls/hr. patient turned throughout the night. am blood sugar is 324, coverage given.
[2019-10-17 07:01] LABS: BASOPHILS % (AUTO) 0.3 % (0.0-5.0); EOSINOPHILS % (AUTO) 0.1 % (0.0-8.0); HEMATOCRIT 36.2 % (42-54); LYMPHOCYTES % (AUTO) 4.4 % (21.0-51.0); MEAN CORPUSCULAR HEMOGLOBIN 26.2 pg (27.0-33.0); MEAN CORPUSCULAR HGB CONC 30.4 g/dL (32.0-36.0); MEAN CORPUSCULAR VOLUME 86.2 fL (79-99); MONOCYTES % (AUTO) 3.1 % (3.0-13.0); NEUTROPHILS % (AUTO) 90.4 % (40.0-77.0); PLATELET COUNT (AUTO) 202 K/uL (130-400); WHITE BLOOD COUNT (AUTO) 15.9 K/uL (4.8-10.8)
[2019-10-17 07:18] LABS: ALBUMIN 2.1 g/dL (3.5-5.0); BILIRUBIN,TOTAL 0.3 mg/dL (0.2-1.0); CREATININE 2.3 mg/dL (0.5-1.5); CRP QUANTITATIVE 11.7 mg/L (0.00-9.0); POTASSIUM 3.6 mmol/L (3.5-5.1); TOTAL PROTEIN, SERUM 5.9 g/dL (6.0-8.3)
[2019-10-17 08:00] VITALS: BP 120/61
[2019-10-17] MEDS: DEXAMETHASONE SOD PHOSPHATE 4 MG/ML 1ML VIAL IVP SCH (08:59)
[2019-10-17] MEDS: ZOSYN 3.375GM+NS 50ML 50 ML IV SCH (08:59)
[2019-10-17] MEDS: CARVEDILOL 3.125 MG TABLET PO SCH (09:00)
[2019-10-17] MEDS: ASCORBIC ACID 500 MG TAB PO SCH (09:00)
[2019-10-17] MEDS: ENOXAPARIN SODIUM 30 MG/0.3 ML SQ SCH (09:00)
[2019-10-17] MEDS: ACETYLCYSTEINE 600 MG CAPSULE PO SCH (09:00)
[2019-10-17] MEDS: FAMOTIDINE/PF 20 MG/2 ML VIAL IV SCH (09:00)
[2019-10-17] MEDS: FOLIC ACID/VITAMIN B COMP W-C 1 CAP TAB PO SCH (09:00)
[2019-10-17] MEDS: ASPIRIN 81MG TAB.CHEW PO SCH (09:00)
--- NOTE | 2019-10-17 10:13 | NUR ---
Shift Note Pt positioned upright in bed. NGT in place and patent with TF infusing. IVFs infusing to right forearm IV site. Carranza catheter patent with yellow urine noted in collection drainage bag. Mittens in place to aid in prevention of tude dislodgement by pt. Pt confused, unresponsive verbally. Pt does attempt to make contact with tactile stimuli detection and attempts to open eyes to voices. V/S are stable at this timeand O2 saturation is WNL.
[2019-10-17 11:52] VITALS: BP 133/64
[2019-10-17] MEDS: ZINC SULFATE 220 CAPSULE PO SCH (12:09)
[2019-10-17] MEDS: DEXTROSE 5%-WATER 1,000 ML IV SCH (15:40)
[2019-10-17 16:00] VITALS: BP 114/75
[2019-10-17] MEDS ORDERED: GUAIFENESIN 600 MG TABLET.ER PO SCH (21:00)
== END 2019-10-17 20:19 | DRG 871 ==
LOC: EDH 16:06 → EDHIP 18:47 → 4BH 20:32
PROVIDERS: ADMIT Internal Medicine; ATTEND Internal Medicine
DX: A41.89 Other specified sepsis (principal); U07.1 COVID-19; J96.01 Acute respiratory failure with hypoxia; I50.33 Acute on chronic diastolic (congestive) heart failure; J12.89 Other viral pneumonia; N39.0 Urinary tract infection, site not specified; N17.9 Acute kidney failure, unspecified; G93.49 Other encephalopathy; E87.0 Hyperosmolality and hypernatremia; E87.1 Hypo-osmolality and hyponatremia; I13.0 Hypertensive heart and chronic kidney disease with heart failure and stage 1 through stage 4 chronic kidney disease, or unspecified chronic kidney disease; I42.9 Cardiomyopathy, unspecified; L03.115 Cellulitis of right lower limb; L03.116 Cellulitis of left lower limb; M62.82 Rhabdomyolysis; N18.9 Chronic kidney disease, unspecified; E11.22 Type 2 diabetes mellitus with diabetic chronic kidney disease; Z66 Do not resuscitate; E78.5 Hyperlipidemia, unspecified; E83.52 Hypercalcemia; E87.6 Hypokalemia; F03.90 Unspecified dementia, unspecified severity, without behavioral disturbance, psychotic disturbance, mood disturbance, and anxiety; I25.10 Atherosclerotic heart disease of native coronary artery without angina pectoris; R53.81 Other malaise; N40.1 Benign prostatic hyperplasia with lower urinary tract symptoms; R33.8 Other retention of urine; R62.7 Adult failure to thrive; Z68.23 Body mass index [BMI] 23.0-23.9, adult; Z74.01 Bed confinement status; Z86.19 Personal history of other infectious and parasitic diseases; Z90.49 Acquired absence of other specified parts of digestive tract; Z88.8 Allergy status to other drugs, medicaments and biological substances; Z83.3 Family history of diabetes mellitus; Z82.5 Family history of asthma and other chronic lower respiratory diseases; Z82.3 Family history of stroke; Z82.0 Family history of epilepsy and other diseases of the nervous system; Z82.49 Family history of ischemic heart disease and other diseases of the circulatory system
CPT/HCPCS: 36415; 71045; 74018; 80048; 80053; 81001; 82330; 82550; 82728; 82948; 83036; 83540; 83550; 83605; 83615; 83690; 83735; 83880; 83935; 83970; 84100; 84132; 84133; 84145; 84300; 84443; 84484; 84550; 85025; 85027; 85045; 85378; 85610; 85730; 86140; 87040; 87077; 87088; 87186; 87426; 87486; 87581; 87633; 87798; 87804; 93005; 99291; A4344; G0378; J1100; J1650; J1815; J1956; J2270; J2405; J2543; J3480; J3490; J7050; J7070; J8540; U0003